=== PATIENT | female | born 1950 | race Caucasian/White ===

== ENCOUNTER 2019-12-22 09:06 | Inpatient (IN) | payer MEDICARE, SELFPAY ==
[2019-12-22] VITALS (24 sets, daily range): BP systolic 97–154; BP diastolic 51–86; PULSE 54–97; RESP 18–33; TEMP 32.9–35.1; O2SAT 90–100
--- NOTE | ~2019-12-22 | XR_ITS ---
XR chest 1V portable DATE: 12/25/2019 06:11 INDICATION: Pneumonia, pulmonary edema TECHNIQUE: Portable AP chest on 01/04/2020 at 0500 hours COMPARISON: 01/03/2020 portable AP chest at 0511 hours FINDINGS: Right internal jugular central venous catheter tip overlies the upper right atrium. ET tube tip is 3.9 cm above rolly, in satisfactory position. NG tube is present in the stomach. Normal heart size. Aortic calcification. There is pulmonary vascular congestion, mild prominence of the minor fissure, consistent with mild co ngestive changes. There are bilateral lower lung infiltrates and/or atelectasis, greater on the left. Diffuse osteopenia. IMPRESSION: Mild congestive changes, bilateral lower lung infiltrate and/atelectasis, left greater th e right, new since 01/03/2020 Reviewed, dictated and finalized at location A. IMPRESSION: Mild congestive changes, bilateral lower lung infiltrate and/atelec tasis, left greater the right, new since 01/03/2020
--- NOTE | ~2019-12-22 | US_ITS ---
US right upper quadrant INDICATION: Elevated liver function tests. PROCEDURE: Realtime right upper abdominal ultrasound. COMPARISON: No prior studies for comparison. FINDINGS: The pancreas is normal without focal mass or pancreatic ductal dilation. Liver echotexture is increased, consistent with fatty infiltration. There is normal directional flow in the portal ve in. The gallbladder is normal without stones, gallbladder wall thickening or pericholecystic fluid. Comm on bile duct measures 4 mm. No sonographic Welsh's sign. IMPRESSION: 1: Fatty infiltration of the liver. Reviewed, dictated and finalized at location A.
--- NOTE | ~2019-12-22 | CT_ITS ---
EXAMINATION: CT brain wo con DATE: 12/22/2019 10:38 INDICATION: Cardiac arrest. Patient unresponsive. TECHNIQUE: Computed tomography (CT) of the head was performed without intravenous contrast. The dose- length product was 605.33 mGy-cm. The mA was adjusted according to patient size. Iterative reconstruc tion technique was employed. COMPARISON: None FINDINGS: Mild atrophy. There are scattered moderate periventricular and subcortical white matter tammy nges, most likely related to small vessel ischemic disease (microangiopathy). No acute intracranial h emorrhage, infarction, mass or mass effect. There are chronic bilateral lacunar infarctions. There is a chronic left occipital lobe infarction. There is intracranial atherosclerosis. There is mild mucos al thickening of the maxillary, ethmoid and sphenoid sinuses. IMPRESSION: 1. No acute intracranial abnormality. 2: Chronic bilateral lacunar and left occipital lobe infarctions. 3: Chronic age-related findings. 4: Mild sinus disease. Reviewed, dictated and finalized at location A.
--- NOTE | ~2019-12-22 | CT_ITS ---
EXAMINATION: CT brain wo con EXAM DATE: 12/25/2019 15:19 INDICATION: Respiratory failure. Cardiac arrest. Anoxic brain injury. TECHNIQUE: Spiral CT of the head was performed without contrast. Axial, coronal and sagittal images were reviewed. The dose-length product (DLP) for this examination was 605.33 mGy-cm. The exposure w as tailored according to patient size, and iterative reconstruction (ASIR) was used as additional dos e reduction technique. Comparison is made to prior examination from 12/22/2019. FINDINGS: Interval development of large peripheral wedge-shaped infarction in the left frontotemporop arietal lobes, left MCA distribution with gyral swelling, effacement of sulci in this infarcted regio n, acute to subacute infarction given the amount of edema. The left uncus protrudes slightly more inf erior than the contralateral side, small amount of left uncal herniation. The lateral ventricles appe ar symmetrical, and there is no subfalcine herniation (no midline shift). There is no hemorrhagic con version. No brain mass identified or obstructive hydrocephalus. No extra-axial collections. There are punctate bilateral old basal ganglia lacunar infarctions. There is mild to moderate microangiopathy and cereb ral atrophy. IMPRESSION: Infarction involving large portion of the left MCA, probably about 3 days old given the a mount of cytotoxic edema within this, causing sulcal effacement, small amount of uncal herniation, bu t no midline shift, and the lateral ventricles appear symmetric. No hemorrhagic conversion. Reviewed, dictated and finalized at location A. IMPRESSION: Infarction involving large portion of the left MCA, probably about 3 days old given the amount of cytotoxic edema within this, causing sulcal effa cement, small amount of uncal herniation, but no midline shift, and the lateral ventricles appear symmetric. No hemorrhagic conversion.
--- NOTE | ~2019-12-22 | XR_ITS ---
XR chest 1V portable DATE: 12/26/2019 06:19 INDICATION: Pneumonia, pulmonary edema TECHNIQUE: Portable AP chest on 12/26/2019 at 0548 hours COMPARISON: 01/04/2020 portable AP chest at 0500 hours FINDINGS: ET tube in satisfactory position 4.3 cm above rolly. NG tube is in satisfactory position w ithin the stomach. Right internal jugular central venous catheter tip overlies the right superior cav oatrial junction area. Heart size appears within normal limits. There are bilateral lower lung zone infiltrates and/atelecta sis, left greater than right. Mild left pleural effusion. There is mild pulmonary vascular congestion and redistribution. Aortic calcification. Diffuse osteopenia. IMPRESSION: Congestive changes Bilateral lower lung infiltrate and/atelectasis; the infiltrate and/or atelectasis in the right lower lung zone is increased since 12/25/2019 Reviewed, dictated and finalized at location A. IMPRESSION: Congestive changes Bilateral lower lung infiltrate and/atelectasis; the infiltrate and/or atelecta sis in the right lower lung zone is increased since 12/25/2019
--- NOTE | ~2019-12-22 | XR_ITS ---
XR abdomen NG/feed tube insert INDICATION: Evaluate NG tube position. TECHNIQUE: Limited KUB perform for evaluating NG tube . COMPARISON: No prior studies for comparison. FINDINGS: NG tube tip has been advanced into the stomach. Visualized bowel gas pattern is unremarkab le. IMPRESSION: 1: NG tube tip in the stomach. Reviewed, dictated and finalized at location A.
--- NOTE | ~2019-12-22 | CT_ITS ---
EXAMINATION: CTA chest PE protocol DATE: 12/22/2019 10:43 INDICATION: Cardiac arrest TECHNIQUE: Computed tomography (CT) pulmonary angiogram of the chest was performed with 100 mL Omnipa que-350 intravenous contrast. Additional 3D reconstructions utilizing coronal maximum intensity proje ction (MIP) were performed. Automated exposure control and iterative reconstruction technique were em ployed. The dose-length product was 537.50 mGy-cm. COMPARISON: None FINDINGS: Excellent contrast opacification of the pulmonary arteries. There is mild streak artifact from dense contrast in the superior vena cava and right atrium. Mild scattered respiratory motion artifact which does not significantly limit evaluation. No pulmonary embolism. Small posteriorly layering bilateral pleural effusions. There is consolidation without significant associated volume loss in the dependen t aspect of the abdominal aorta bilateral upper and lower lobes and to a lesser degree the lingula an d right middle lobes. Slightly more anteriorly there are patchy centrilobular groundglass opacities. There are some peripheral smooth septal line thickening at the lung bases and apices. No pneumothorax . Mild cardiomegaly. Atherosclerotic coronary artery calcifications. No pericardial effusion. Thoraci c aorta is normal in caliber with no dissection. No pathologically enlarged thoracic lymphadenopathy. Endotracheal tube tip 3.0 cm above the rolly. Nasogastric tube extends into the stomach. Diffuse h epatic steatosis. Moderate thoracic spondylosis. IMPRESSION: 1. Extensive dependent predominant lung disease given appearance and pattern would favor severe pulmo nary edema over pneumonia. 2. Small bilateral pleural effusions. 3. Cardiomegaly. 4. Diffuse hepatic steatosis. Reviewed, dictated and finalized at location A. IMPRESSION: 1. Extensive dependent predominant lung disease given appearance and pattern wo uld favor severe pulmonary edema over pneumonia. 2. Small bilateral pleural effusions. 3. Cardiomegaly. 4. Diffuse hepatic steatosis.
--- NOTE | ~2019-12-22 | XR_ITS ---
EXAMINATION: XR chest 1V portable DATE: 12/27/2019 05:48 INDICATION: Pneumonia. Pulmonary edema. TECHNIQUE: A single frontal view of the chest was obtained. COMPARISON: Chest single view 12/26/2019, chest CT 12/22/2019 FINDINGS: The lung volumes are small. There is a small left pleural effusion. There are airspace opac ities in the perihilar regions and at left lung base. No pneumothorax. The heart size is normal. The endotracheal tube tip is 3.7 cm above the rolly. The nasogastric tube tip is in the stomach. A right internal jugular central venous catheter is seen with tip at the superior cavoatrial junction. IMPRESSION: 1. Stable airspace opacities in the perihilar regions and at left lung base, consistent with pulmonar y edema versus pneumonia. 2. Stable small left pleural effusion. Reviewed, dictated and finalized at location A. IMPRESSION: 1. Stable airspace opacities in the perihilar regions and at left lung base, co nsistent with pulmonary edema versus pneumonia. 2. Stable small left pleural effusion.
--- NOTE | ~2019-12-22 | XR_ITS ---
EXAMINATION: XR chest port-a-cath/central DATE: 12/22/2019 13:34 INDICATION: Central line placement TECHNIQUE: frontal view of the chest was obtained. COMPARISON: Chest radiograph dated 12/22/2019 at 9:19 AM FINDINGS: Right internal jugular central venous catheter with distal tip appearing to call back upon itself in the region of the high right atrium/superior cavoatrial junction, possibly within the atrial appendag e. Endotracheal tube tip 3.5 cm above the rolly. Nasogastric tube extends below the left hemidiaphr agm with distal tip collimated off the study. Significant improvement in the prior extensive airspace disease throughout the left lung with now mor e symmetric appearance of bilateral perihilar and lower lung predominant opacities. No pneumothorax o r definitive pleural effusion. The cardiomediastinal silhouette is appears within normal limits accou nting for AP technique and slight leftward rotation of the patient. IMPRESSION: 1. Right internal jugular central venous catheter with tip coiled in the region of the superior cavoa trial junction, possibly within the right atrial appendage. Would consider withdrawal by 3 cm and kannan maging. A lateral view if possible would also be helpful. 2. Improving bilateral airspace disease which given appearance on prior CT and the relatively rapid i mprovement on the left would favor pulmonary edema over pneumonia. Reviewed, dictated and finalized at location A. IMPRESSION: 1. Right internal jugular central venous catheter with tip coiled in the region of the superior cavoatrial junction, possibly within the right atrial appendag e. Would consider withdrawal by 3 cm and reimaging. A lateral view if possible would also be helpful. 2. Improving bilateral airspace disease which given appearance on prior CT and the relatively rapid improvement on the left would favor pulmonary edema over p neumonia.
--- NOTE | ~2019-12-22 | XR_ITS ---
EXAMINATION: XR chest 1V portable DATE: 12/23/2019 05:40 INDICATION: Pulmonary edema and pneumonia TECHNIQUE: frontal view of the chest was obtained. COMPARISON: Chest radiograph dated 12/22/2019 FINDINGS: Endotracheal tube tip 3.3 cm above the rolly. Right internal jugular central venous catheter with di stal tip at the caudal superior vena cava. Nasogastric tube extends below the left hemidiaphragm wit h distal tip collimated off the study. Decrease in the previously seen pulmonary vascular congestion and mild bilateral airspace opacities l ikely resolving pulmonary edema. No pleural effusion or pneumothorax. The cardiomediastinal silhouett e is normal. IMPRESSION: 1. Near complete resolution of prior pulmonary edema. Reviewed, dictated and finalized at location A.
--- NOTE | ~2019-12-22 | XR_ITS ---
EXAMINATION: XR chest 1V portable DATE: 12/28/2019 05:53 INDICATION: Respiratory failure. TECHNIQUE: A single frontal view of the chest was obtained. COMPARISON: Chest single view 12/27/2019 FINDINGS: There are airspace opacities in the perihilar regions and lower lung zones. There is a smal l left pleural effusion. No pneumothorax. The heart size is normal. The endotracheal tube tip is 3.2 cm above the rolly. A right internal jugular central venous catheter is seen with tip at the superio r cavoatrial junction. The nasogastric tube tip is in the stomach. IMPRESSION: 1. Stable airspace opacities in the perihilar regions and lower lung zones, consistent with pulmonary edema versus pneumonia. 2. Stable small left pleural effusion. Reviewed, dictated and finalized at location A. IMPRESSION: 1. Stable airspace opacities in the perihilar regions and lower lung zones, con sistent with pulmonary edema versus pneumonia. 2. Stable small left pleural effusion.
--- NOTE | ~2019-12-22 | XR_ITS ---
XR chest ET placement 12/22/2019 09:34 Indication: Respiratory arrest. Endotracheal tube placement. Procedure: AP portable chest. 3 chest images. Comparison: No prior studies for comparison. Findings: Initial image demonstrates endotracheal tube in the right mainstem bronchus. Subsequent rola ges demonstrate retraction of the endotracheal tube, 2.5 cm above the rolly. Heart size normal. Ther e is diffuse bilateral airspace disease which most likely represents edema. Pneumonia less favored. N G tube in the distal aspect of the esophagus. Recommend advancement. No pleural effusion or pneumotho rax. Impression: 1: Diffuse bilateral airspace disease, most likely edema. Pneumonia less favored. Reviewed, dictated and finalized at location A. Impression: 1: Diffuse bilateral airspace disease, most likely edema. Pneumonia less favore dRalph
--- NOTE | ~2019-12-22 | XR_ITS ---
XR chest port-a-cath/central 12/22/2019 15:51 Indication: Central line placement. Cardiac arrest. Procedure: AP portable chest Comparison: Comparison to multiple prior studies sequentially, with oldest reviewed study dated 01/2020. Findings: Endotracheal tube 4.5 cm above the rolly. Right IJ central line tip in the CC. NG tube in the stomach. Heart size normal. Diffuse bilateral airspace disease. No pneumothorax. Impression: 1: Diffuse bilateral airspace disease may represent edema or less likely pneumonia. Reviewed, dictated and finalized at location A. Impression: 1: Diffuse bilateral airspace disease may represent edema or less likely pneumo lauren.
--- NOTE | ~2019-12-22 | XR_ITS ---
EXAMINATION: XR chest 1V portable DATE: 12/24/2019 05:32 INDICATION: Pneumonia. Pulmonary edema. TECHNIQUE: frontal view of the chest was obtained. COMPARISON: Chest radiograph dated 12/23/2019 FINDINGS: Endotracheal tube tip 4.8 cm above the rolly. Right internal jugular central venous catheter with di stal tip at the caudal superior vena cava. Nasogastric tube extends below the left hemidiaphragm wit h distal tip collimated off the study. No focal airspace opacities, pulmonary edema, pleural effusion or pneumothorax. The cardiomediastinal silhouette is normal. IMPRESSION: 1. No evident cardiopulmonary disease. Reviewed, dictated and finalized at location A.
--- NOTE | 2019-12-22 09:07 | ECG_ITS ---
Measurements Intervals [place] Rate: 59 P: 73 KS: 152 QRS: -30 QRSD: 174 T: 158 QT: 493 QTc: 490 Interpretive Statements SINUS BRADYCARDIA LEFT BUNDLE BRANCH BLOCK BASELINE WANDER- I, II, III, AVR, AVL, AVF, V6 ABNORMAL ECG Electronically Signed On 12-22-2019 9:15:49 CDT by Carlos Rodarte D.O.
--- NOTE | 2019-12-22 09:09 | ED.CPR ---
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 Patient lives at home with her daughter, daughter was at work when she received a phone call asking her to come home because something was not right. When daughter arrived at the house mom was laying on her bed and still moving but not acting herself. EMS was called. Upon EMS arrival patient was in asystole and CPR was initiated. She received epinephrine IV x2. She was intubated in the field. They did obtain return of spontaneous circulation. A left tibial intraosseous line was placed in the field. Blood sugar was 68. Patient does not go to the doctor and has no known medical history. She does not take any medications. Upon arrival patient does have intact pulses, she is clamped down peripherally with mottling centrally. Related Data Allergies Allergy/AdvReac Type Severity Reaction Status Date / Time No Known Allergies Allergy Verified 12/22/19 10:05 Review of Systems Review of Systems: ROS unobtainable: Yes unobtainable due to endotracheal tube and unobtainable due to medical condition [facility] Past Medical History Medical History (Updated 12/22/19 @ 11:38 by Mani Rudd MD) No significant past medical history Surgical History Surgical History (Updated 12/22/19 @ 09:26 by Mani Rudd MD) No significant past surgical history Social History Social History (Updated 12/22/19 @ 09:26 by Mani Rudd MD) Smoking status: Never smoker Substance use: never Gender identity (if verbalized by the patient): Female Exam Narrative: Exam Narrative: GENERAL: Unresponsive, obese.. HEAD: Normocephalic, atraumatic. EYES: Pupils fixed and dilated. Extraocular movements.. ENT: Mucous membranes moist. ET tube present with white frothy secretions NECK: Supple. CHEST: No spontaneous respiratory effort and patient being bagged. Decreased lung sounds on the right compared to left, suspect right mainstem intubation. HEART: Regular rate and rhythm. Strong central pulses with diminished peripheral pulses.. ABDOMEN: Soft, nondistended, normal active bowel sounds. EXTREMITIES: Left tibial IO. The skin of the fingers and left kinsey are very white due to clamp down peripheral blood vessels. SKIN: Cool and dry, central skin mottling as well as mottling to the proximal extremities. NEURO: GCS 3. Course Reevaluation(s) Reevaluation #1: Patient skin color is improved significantly. She is starting to gag on the ET tube and pupils are now 3 mill meters and sluggish. She responds to touching her face. Blood pressure 106/49 with heart rate 96 bpm. Patient is on the ventilator. I spoke with patient's daughter Aziza and updated her on patient's condition. Patient is full code they want all interventions at this time. Daughter reports there is been no change in patient's physical ability recently. She typically stays at home. She left the house 1 time last week but did not like breathing through the mask that she was wearing so she is opted not to leave again. Otherwise she has no exertional dyspnea or fatigue. She is without any infectious symptoms. Date: 12/22/19 Time: 09:32 Reevaluation #2: Patient's daughter is been in the room with her. Informed of results. Admit to hospitalist service and ICU consulting. Patient persistently hypothermic down here. No recommendation warm at this time, will likely start therapeutic hypothermia upstairs. Lasix 80 mg ordered for diuresis. Date: 12/22/19 Time: 11:36 Vital Signs Vital signs: Vital Signs Temperature 95.2 F L 12/22/19 08:59 Pulse Rate 54 L 12/22/19 08:59 Respiratory Rate 18 12/22/19 08:59 Blood Pressure 97/51 L 12/22/19 08:59 Pulse Oximetry 99 12/22/19 08:59 Temperature 95.2 F L 12/22/19 08:59 Pulse Rate 95 12/22/19 10:55 Respiratory Rate 1
[2019-12-22] MEDS: MIDAZOLAM HCL 2 MG/2 ML VIAL (09:37)
--- NOTE | 2019-12-22 09:37 | ECG_ITS ---
Measurements Intervals [place] Rate: 103 P: 49 [place]: 171 QRS: -24 QRSD: 147 T: 134 QT: 390 QTc: 513 Interpretive Statements SINUS TACHYCARDIA LEFT BUNDLE BRANCH BLOCK BASELINE ARTIFACT- II ABNORMAL ECG Electronically Signed On 12-22-2019 12:59:38 CDT by Carlos Rodarte D.O.
[2019-12-22 09:40] LABS: Basophils Absolute Auto 0.1 K/mm3 (0.0-0.1); Basophils Percent Auto 0.8 % (0.2-1.2); Eosinophils Absolute Auto 0.2 K/mm3 (0-0.3); Eosinophils Percent Auto 2.2 % (0-4.4); Hematocrit 53.7 % (37.0-47.0); Immature Granulocyte Absolute 0.34 K/mm3 (0.00-0.031); Immature Granulocyte Percent A 4.7 % (0-0.5); Lymphocytes Absolute Auto 3.34 K/mm3 (0.9-3.2); Lymphocytes Percent Auto 45.9 % (18.3-44.2); Mean Corpuscular HGB Conc 29.8 g/dl (32-36); Mean Corpuscular Hemoglobin 30.7 pg (26-34); Mean Corpuscular Volume 103.1 fl (80-100); Mean Platelet Volume 9.8 fl (7.4-10.4); Monocytes Absolute Auto 0.5 K/mm3 (0.1-0.6); Monocytes Percent Auto 6.7 % (2.6-8.5); Neutrophils Absolute Auto 2.9 K/mm3 (1.3-6.7); Neutrophils Percent Auto 39.7 % (45.5-73.1); Nucleated Red Blood Cells Absolute Auto 0.1 K/mm3 (0.0-0.012); Nucleated Red Blood Cells Perc 0.7 % (0.0-0.2); Platelet Count Result 286 k/mm3 (150-375); Red Blood Count 5.21 M/mm3 (4.2-5.4); Red Cell Distribution Width 12.8 % (11.5-14.5); White Blood Count 7.3 K/mm3 (4.5-10.0)
[2019-12-22 09:50] LABS: INR 1.3
[2019-12-22 09:51] LABS: Partial Thromboplastin Time 51.1 SECONDS (22.3-36.8)
[2019-12-22 09:59] LABS: Albumin Level 3.8 g/dL (3.5-5.1); Alkaline Phosphatase 95 U/L (38-126); Aspartate Amino Transferase 94 U/L (14-36); Bilirubin,Total 0.4 mg/dL (0.2-1.3); Blood Urea Nitrogen 10 mg/dL (7-17); Carbon Dioxide 12 mmol/L (22-30); Chloride 104 mmol/L (98-107); Cholesterol 233 mg/dL (0-200); Estimated Glomerular Filt Rate 49; Glucose 305 mg/dL (65-105); HDL Direct 49 mg/dL; Potassium 3.6 mmol/L (3.4-5.0); Sodium 140 mmol/L (137-145); Triglycerides 207 mg/dL (<150)
[2019-12-22 10:00] LABS: NT Pro B Type Natriuretic Pept 1160 PG/ML (5-100)
[2019-12-22 10:04] LABS: LDL Cholesterol Direct 151 mg/dL
[2019-12-22 10:05] LABS: Alanine Aminotransferase 48 U/L (4-35)
[2019-12-22 10:13] LABS: Lactic Acid Reflex 18.5 mmol/L (0.7-2.1); Troponin I 0.102 ng/mL (0.000-0.034)
[2019-12-22] MEDS: SODIUM CHLORIDE 0.9% IV 1,000 ML 999 ML IV CONT (10:30)
--- NOTE | 2019-12-22 11:20 | PC.NURSE ---
Addendum entered by Clinton Sibley RN 12/22/19 12:25: While Pt. is CT, Pt. being mechanically ventilated via BVM on high flow O2 from respiratory therapist. Original Note: ACLS and CPR performed out in the field. 2 doses of epi given by EMS at 843 and 849. Pt. got a pulse back at 849. Pt. was asystole prior to medication administration. 900 EMS arrived. Pt. currently has a pulse in ROSC. 915 per EMS Pt. BG was 68, Per EDP via verbal order readback give 1/2 amp of D50 due to BG. 920 EMS had a 7 ET inserted 27cm at the lip. Per EDP pulled ET tube back 3cm due to CXR showing tube not in proper placement 922 Per EDP via verbal order readback pull ET back 2cm. Pt. ET tube now 22 at the lip. CXR shows proper placement, NG tube placed at 60cm in the left nares. Placement confirmed by KUB XR. 931 Pt. becoming more arousing, gagging on ET Tube, Per EDP give 2mg versed via verbal order readback IVP 938 Pt. still gagging on ET tube per EDP via verbal order give 50mcg of fentanyl via IVP. WAiting for sedation drips 1020 Pt. more arousable, Per EDP via verbal order readback titrate versed drip up to 3mg/hr and fentanyl drip down to 25mcg/hr. [address] with RN and RT. 1045 Pt. back to room with RN and RT. Placed back on monitor and ventilator.
[2019-12-22] MEDS: FUROSEMIDE INJ 100 MG/10 ML VIAL 80 MG IV PUSH (11:22)
--- NOTE | 2019-12-22 11:36 | PC.NURSE ---
EDP notified that Pt. core temperature decreased from 95.6 F to 93.2 F. Per EDP via verbal order readback do not warm Pt. due to therapeutic hypothermia.
--- NOTE | 2019-12-22 12:04 | WPDCNINT ---
Assessment and Plan Assessment and plan (1) Cardiac arrest: Code(s): I46.9 - Cardiac arrest, cause unspecified Status: Acute Assessment and Plan: cardiac arrest, unknown etiology could be related to cardiac arrhythmia, respiratory event, coronary artery disease, patient has not seen a doctor in a long time and does not have any known medical history - myoclonic jerks observed - poor prognostic sign post cardiac arrest, started on Keppra - will place patient on hypothermia protocol right IJ central line placed. - Cardiology has been consulted for left bundle branch block seen on EKG - troponin 0.102 x 1, 2nd set pending (2) Acute respiratory failure: Code(s): J96.00 - Acute respiratory failure, unspecified whether with hypoxia or hypercapnia Status: Acute Assessment and Plan: acute respiratory failure likely related to cardiac arrest, pulmonary edema, pneumonia, CHF - patient intubated on 12/22/2019 - on CMV mode of ventilation, peep of 8, 100% FiO2 for now - chest CT and chest x-ray reviewed, no PE - ABGs pending - patient started on ceftriaxone and azithromycin, (3) Suspected COVID-19 virus infection: Code(s): R68.89 - Other general symptoms and signs Status: Acute Assessment and Plan: SARS-CoV-2 PCR Has been obtained and pending results. - Will place patient on Airborne, droplet and contact precautions. (4) Bilateral pulmonary infiltrates on chest x-ray: Code(s): R91.8 - Other nonspecific abnormal finding of lung field Status: Acute Assessment and Plan: bilateral pulmonary infiltrates, possible pneumonia, suspected COVID-19 pneumonia - antibiotics as above (5) Pulmonary edema: Code(s): J81.1 - Chronic pulmonary edema Status: Acute Assessment and Plan: pulmonary edema noted on the chest x-ray and CT scan - unknown history of congestive heart failure, - BNP 1160 - continue to diurese (6) Myoclonic jerking: Code(s): G25.3 - Myoclonus Status: Acute Assessment and Plan: patient started on Keppra, - will add Ativan p.r.n. - neurology has been consulted (7) Dietary counseling and surveillance: Code(s): Z71.3 - Dietary counseling and surveillance Status: Acute Assessment and Plan: NPO for now (8) DVT prophylaxis: Code(s): Z29.9 - Encounter for prophylactic measures, unspecified Status: Acute Assessment and Plan: DVT prophylaxis: Lovenox stress ulcer prophylaxis: Protonix Additional Plan discussed with son Speedy Berger and updated him with patient's condition, plan of care. I discussed with him in details regarding hypothermia protocol post cardiac arrest, updated him that I placed a central line, he is aware that patient will be cold for 24 hours and did removed. I also discussed with him the myoclonic jerks/seizures. He is aware that cardiology and Neurology will be following the patient along with me. Code status: Full code Critical care time spent: 54 minutes Due to a high probability of clinically significant, life threatening deterioration, the patient required my highest level of preparedness to intervene emergently and I personally spent this critical care time directly and personally managing the patient. This critical care time included obtaining a history; examining the patient; pulse oximetry; ordering and review of studies; arranging urgent treatment with development of a management plan; evaluation of patient's response to treatment; frequent reassessment; and discussions with other providers. It was exclusive of separately billable procedures and treating other patients and teaching time. Please see Assessment and Plan section and the rest of the note for further information on patient assessment and treatment Patient Ombudsperson Consult Note Consult date: 12/22/19 Time Seen: 12:11 Reason for consult: Cardiac arrest, acute respirato
[2019-12-22 12:38] LABS: Reflex Lactic Acid Yes or No Add Lactic
[2019-12-22] MEDS: levETIRAcetam 1000MG/NACL100ML 1,000 MG/100 ML BAG 400 MG IVPB (13:33)
[2019-12-22] MEDS: ENOXAPARIN 40 MG/0.4 ML SYRINGE SUB-Q (13:33)
[2019-12-22] MEDS: PANTOPRAZOLE SODIUM IV 40 MG VIAL IV PUSH (13:33)
[2019-12-22 14:23] LABS: Basophils Absolute Auto 0.1 K/mm3 (0.0-0.1); Basophils Percent Auto 0.4 % (0.2-1.2); Eosinophils Percent Auto 0.1 % (0-4.4); Hematocrit 54.1 % (37.0-47.0); Hemoglobin 17.6 g/dL (12.0-15.0); Immature Granulocyte Absolute 0.14 K/mm3 (0.00-0.031); Immature Granulocyte Percent A 0.6 % (0-0.5); Lymphocytes Absolute Auto 0.98 K/mm3 (0.9-3.2); Lymphocytes Percent Auto 4.5 % (18.3-44.2); Mean Corpuscular HGB Conc 32.5 g/dl (32-36); Mean Corpuscular Hemoglobin 30.7 pg (26-34); Mean Corpuscular Volume 94.4 fl (80-100); Mean Platelet Volume 9.4 fl (7.4-10.4); Monocytes Absolute Auto 1.1 K/mm3 (0.1-0.6); Monocytes Percent Auto 4.8 % (2.6-8.5); Neutrophils Absolute Auto 19.6 K/mm3 (1.3-6.7); Neutrophils Percent Auto 89.6 % (45.5-73.1); Platelet Count Result 282 k/mm3 (150-375); Red Blood Count 5.73 M/mm3 (4.2-5.4); Red Cell Distribution Width 12.9 % (11.5-14.5); White Blood Count 21.9 K/mm3 (4.5-10.0)
--- NOTE | 2019-12-22 14:30 | ADMGEN ---
This patient, Cris Phan, was admitted to Intensive Care Unit-6. Patient arrived via stretcher from ED, intubated and sedated on Versed and Fentanyl gtt. Peripheral IV x2 and Intraosseous IV x 1. NG to right nare noted
[2019-12-22 14:31] LABS: HCO3 ABG 15.7 mEq/l (22.0-26.0); PO2 ABG 96.3 mmHg (80.0-100.0); pH ABG 7.213 (7.350-7.450)
--- NOTE | 2019-12-22 14:31 | WPDPROCEDUR ---
Procedures Central Line Placement Right IJ: Central Line Date: 12/22/19 Central Line Time: 12:41 Discussed w/ the patient/family/POA,the placement of a central venous catheter, including its clinical necessity/indication & associated potential risks, benifits and alternatives.: Yes The patient/family/POA understand(s) and acknowledge(s) the need to proceed with central venous catheter insertion as an important element of the patient's clinical management.: Yes Time Out Performed: Yes Patient Position: trendelenburg Patient placed on monitor/pulse ox: Yes Provider Prep: mask, sterile gown, sterile gloves, Max. sterile barrier precautions and hand hygiene Central line prep: Chlorhexidine scrub and sterile full body sheet applied Local anesthesia used: lidocaine 1% Amount of anesthesia used (ml): 3 Ultrasound used for placement: Yes Central line lumen inserted: triple [place]: 16 Length (cm): 16 Depth of Insertion (cm): 16 Post procedure: sutured in place, good blood return, all ports aspirated, flushed, capped, tegaderm, hemostatic disc, antimicrobial disc and aseptic technique maintained throughout procedure Post procedure x-ray: tip of catheter in good position and other Patient tolerated procedure: well Complications: none
[2019-12-22 14:32] LABS: Base Excess ABG 11.4 mEq/l (+/-2.0); Total Hemoglobin 18.3 g/dL (12.0-18.0)
[2019-12-22 14:33] LABS: Alveolar/Arterial O2 Gradient 576.7 mmHg; Carboxyhemoglobin 0.3 % THb (0-2.0); Methemoglobin ABG 0.4 %THb (0-1.5); Oxygen Content ABG 24.6 %vol (16.0-22.0); Oxyhemoglobin 95.6 % THb (90.0-100.0)
[2019-12-22 14:34] LABS: Lactate Dehydrogenase 1806 U/L (313-618); Lactic Acid Reflex 3.5 mmol/L (0.7-2.1)
[2019-12-22 14:34] LABS: Device VENTILATOR; Fractional Inspired Oxygen 100 %; Modified Allen's Test Pass; PO2 FiO2 Ratio Arterial Blood 0.96 %; Reduced Hemoglobin 3.7 %THb (0-5.0); Site Drawn RIGHT RADIAL
[2019-12-22 14:37] LABS: Arterial Blood Gas Ventilator rate 20 /MIN
[2019-12-22 14:38] LABS: Arterial Blood Gas PEEP 8 cmH2O; Arterial Blood Gas Tidal Volume 350 ml; Arterial Blood Gas Vent Mode CMV
[2019-12-22 14:38] LABS: Alanine Aminotransferase 84 U/L (4-35); Albumin Level 3.9 g/dL (3.5-5.1); Alkaline Phosphatase 117 U/L (38-126); Aspartate Amino Transferase 228 U/L (14-36); Bilirubin,Total 0.4 mg/dL (0.2-1.3); Blood Urea Nitrogen 15 mg/dL (7-17); CRP 0.6 mg/dL (<1.0); Calcium 7.5 mg/dL (8.4-10.2); Carbon Dioxide 21 mmol/L (22-30); Chloride 107 mmol/L (98-107); Estimated CRCL calculation 51 ml/min; Estimated Glomerular Filt Rate > 60; Glucose 285 mg/dL (65-105); Hemoglobin A1C 5.3 % (<5.7); Potassium 3.4 mmol/L (3.4-5.0); Sodium 138 mmol/L (137-145)
[2019-12-22 14:48] LABS: Troponin I 0.627 ng/mL (0.000-0.034)
[2019-12-22 15:02] LABS: D Dimer > 20.00 ug/mL (<0.48)
[2019-12-22 15:34] LABS: Hepatitis B Surface Antigen Negative (Negative)
[2019-12-22 15:40] LABS: HAV RESULT Negative (Negative); Hepatitis B Core IgM Result Negative (Negative)
[2019-12-22 15:51] LABS: Hepatitis C Virus Antibody Negative (Negative)
[2019-12-22] MEDS: SODIUM BICARBONATE 8.4% 50 MEQ/50 ML VIAL IV PUSH (16:13)
[2019-12-22] MEDS: LACTATED RINGERS 1,000 ML 75 ML IV CONT (16:44)
[2019-12-22] MEDS: LORAZEPAM INJ 2 MG/ML VIAL IV PUSH ×2 (16:44→23:41)
[2019-12-22] MEDS: INSULIN ASPART (*BKC) 100 UNITS/ML SUB-Q (17:31)
[2019-12-22 17:38] LABS: Glucose Point of Care 226 (65-105)
[2019-12-22 18:02] LABS: Troponin I 0.856 ng/mL (0.000-0.034)
--- NOTE | 2019-12-22 18:30 | PM.IMHP ---
H&P: HPI History of Present Illness Chief complaint: Post cardiac arrest. Narrative: Cris Phan is a 69-year-old female with no known medical history (the patient has not seen a physician for many years) who presented to the emergency department earlier today via EMS from home post cardiac arrest. The patient shares a home with her daughter, who mentions that the patient really has not left the house since October due to sheltering in place. The patient seems to have been in her usual state of health, however early this morning she phoned her daughter and asked her to come home because she was just not feeling right. When the daughter arrived at the home, the patient was alert and lying in bed, however she was ?not acting right.? Daughter then called 911, and on EMS arrival the patient was in asystole. CPR was initiated, she was intubated, IO was placed, and she received epinephrine x2 with return of spontaneous circulation. Hypothermia protocol has been initiated and she is currently sedated and intubated in the ICU. Total down time was reportedly approximately 15 minutes time. Patient's daughter does work outside of the home, but she denies exposure to those positive for COVID-19 and she has not had sick contacts. The patient has not complained of feeling poorly recently. Review of Systems Review of Systems: Narrative: Unobtainable to obtain as the patient is sedated and intubated. 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 Surgical History Surgical History (Updated 12/22/19 @ 09:26 by Mani Rudd MD) No significant past surgical history Family History Family History (Updated 12/22/19 @ 18:53 by Jama Yeager RN) Other Unknown family medical history Social History Social History (Updated 12/22/19 @ 19:53 by Deanna Germain PA-C) Smoking status: Never smoker Alcohol intake: current Drinks per week: 12 Substance use: never Substance use type: does not use Living arrangements: with family Additional living arrangements comments: Patient lives in [place] with her daughter. Occupation/Education: retired Spiritual care concerns: No Agree to blood products: Yes Meds Home Medications and Allergies Allergies Allergy/AdvReac Type Severity Reaction Status Date / Time No Known Allergies Allergy Verified 12/22/19 10:05 Vital Signs Vital Signs - 24 hr 12/22/19 08:59 12/22/19 09:01 12/22/19 09:21 Temperature 95.2 F L Pulse Rate 54 L 86 Respiratory Rate 18 Blood Pressure 97/51 L Pulse Oximetry 99 99 12/22/19 09:37 12/22/19 10:00 12/22/19 10:16 Temperature 95.2 F L Pulse Rate 97 96 Respiratory Rate 19 Blood Pressure 113/69 Pulse Oximetry 100 100 99 12/22/19 10:55 12/22/19 11:00 12/22/19 11:15 Temperature 93.2 F L Pulse Rate 95 97 Respiratory Rate 18 Blood Pressure 132/66 Pulse Oximetry 98 95 95 12/22/19 11:55 12/22/19 12:05 12/22/19 12:18 Temperature 93.6 F L 94.6 F L Pulse Rate 85 82 93 Respiratory Rate 18 21 H Blood Pressure 117/76 147/83 H Pulse Oximetry 96 91 90 12/22/19 14:00 12/22/19 14:43 12/22/19 15:31 Temperature 93.5 F L Pulse Rate 73 74 75 Respiratory Rate 20 Blood Pressure 136/75 Pulse Oximetry 99 98 96 12/22/19 16:00 12/22/19 17:17 12/22/19 18:00 Temperature 91.4 F L 91.2 F L Pulse Rate 78 87 72 Respiratory Rate 33 H 23 H Blood Pressure 128/86 121/67 Pulse Oximetry 98 97 98 Exam Narrative: Exam Narrative: General: Acutely ill-appearing female sedated and intubated. HEENT: Normocephalic, atraumatic. Pupils are approximately 2 millimeters and matter are not reactive. Conjunctiva mildly injected. ET tube in place. I was told she had a positive cough re
[2019-12-22] MEDS: ALBUTEROL SULFATE NEB 2.5 MG/0.5 ML INH 5 MG INHALATION (19:55)
[2019-12-22] MEDS: levETIRAcetam 500MG/NACL 100ML 500 MG/100 ML BAG 400 MG IVPB ×2 (20:06→22:18)
[2019-12-22 21:23] LABS: Salicylate < 1.0 mg/dL (2-20)
[2019-12-22 21:24] LABS: Acetaminophen < 10 ug/mL (10-30)
[2019-12-22] MEDS: PROPOFOL IV EMULSION 100 ML 5 MG IV CONT (21:42)
[2019-12-22 23:56] LABS: Glucose Point of Care 167 (65-105)
[2019-12-23] VITALS (27 sets, daily range): BP systolic 103–181; BP diastolic 56–92; PULSE 56–103; RESP 20–27; TEMP 33.3–37.3; O2SAT 97–100; BMI 71.4
[2019-12-23] MEDS: LORAZEPAM INJ 2 MG/ML VIAL IV PUSH ×5 (02:16→20:24)
[2019-12-23] MEDS: ALBUTEROL SULFATE NEB 2.5 MG/0.5 ML INH 5 MG INHALATION ×4 (02:27→21:23)
[2019-12-23 05:26] LABS: Alveolar/Arterial O2 Gradient 217.9 mmHg; Carboxyhemoglobin 0.1 % THb (0-2.0); Fractional Inspired Oxygen 50 %; HCO3 ABG 23.2 mEq/l (22.0-26.0); Methemoglobin ABG 0.2 %THb (0-1.5); Oxygen Saturation ABG 96.9 % (95.0-100.0); Oxyhemoglobin 96.6 % THb (90.0-100.0); PCO2 ABG 50.1 mmHg (35.0-45.0); PO2 ABG 100.7 mmHg (80.0-100.0); PO2 FiO2 Ratio Arterial Blood 2.01 %; Reduced Hemoglobin 3.1 %THb (0-5.0); Total Hemoglobin 16.9 g/dL (12.0-18.0)
[2019-12-23 05:27] LABS: Device VENTILATOR; Modified Allen's Test Pass; Site Drawn RIGHT RADIAL; pH ABG 7.284 (7.350-7.450)
[2019-12-23 05:28] LABS: Arterial Blood Gas PEEP 8 cmH2O; Arterial Blood Gas Tidal Volume 350 ml; Arterial Blood Gas Vent Mode CMV; Arterial Blood Gas Ventilator rate 22 /MIN
[2019-12-23 05:44] LABS: Hematocrit 48.8 % (37.0-47.0); Hemoglobin 16.3 g/dL (12.0-15.0); Mean Corpuscular HGB Conc 33.4 g/dl (32-36); Mean Corpuscular Hemoglobin 30.6 pg (26-34); Mean Corpuscular Volume 91.6 fl (80-100); Mean Platelet Volume 9.2 fl (7.4-10.4); Platelet Count Result 248 k/mm3 (150-375); Red Blood Count 5.33 M/mm3 (4.2-5.4); Red Cell Distribution Width 12.8 % (11.5-14.5); White Blood Count 15.9 K/mm3 (4.5-10.0)
[2019-12-23 06:00] LABS: Lactic Acid 2.4 mmol/L (0.7-2.1)
[2019-12-23 06:04] LABS: Alanine Aminotransferase 67 U/L (4-35); Albumin Level 3.5 g/dL (3.5-5.1); Alkaline Phosphatase 78 U/L (38-126); Aspartate Amino Transferase 112 U/L (14-36); Bilirubin,Total 0.3 mg/dL (0.2-1.3); Blood Urea Nitrogen 17 mg/dL (7-17); CRP 6.5 mg/dL (<1.0); Calcium 7.1 mg/dL (8.4-10.2); Carbon Dioxide 26 mmol/L (22-30); Chloride 107 mmol/L (98-107); Estimated CRCL calculation 115 ml/min; Estimated Glomerular Filt Rate > 60; Glucose 118 mg/dL (65-105); Magnesium 1.6 mg/dL (1.6-2.3); Phosphorus 4.2 mg/dL (2.5-4.5); Potassium 3.6 mmol/L (3.4-5.0); Sodium 141 mmol/L (137-145)
[2019-12-23] MEDS: LACTATED RINGERS 1,000 ML 75 ML IV CONT (06:15)
[2019-12-23 07:18] LABS: Add Urine Microscopic? YES; Appearance Urine Clear (Clear); Bacteria Urine Trace /hpf; Bilirubin Urine Negative (Negative); Blood Urine 1+ (Negative); Color Urine Straw (Yellow); Glucose Urine UA Negative (Negative); Ketones Urine Negative (Negative); Leukocyte Esterase Ur Negative LEU/UL (NEGATIVE); Mucus Urine Rare /lpf; Nitrate Urine Negative (Negative); Protein Urine Negative (Negative); RBC Urine 0-2 /hpf (0-2); Specific Grav Ur 1.015 (1.001-1.035); Squamous Epithelial Cell Urine Rare /hpf (Few); Urobilinogen Urine Negative mg/dL (<2.0); WBC Urine 0-3 /hpf (0-3)
[2019-12-23 08:14] LABS: Amphetamine Screen Urine Negative (Negative); Barbiturate Screen Urine Negative (Negative); Benzodiazepines Screen Urine Positive (Negative); Cannabinoid Screen Urine Negative (Negative); Cocaine Screen Urine Negative (Negative); Methadone Screen Urine Negative (Negative); Opiate Screen Urine Negative (Negative); Phencyclidine Screen Urine Negative (Negative)
[2019-12-23] MEDS: MAGNESIUM SULF 2 GM/WATER 50ML 2 GM/50 ML BAG IVPB (08:15)
[2019-12-23] MEDS: ENOXAPARIN 40 MG/0.4 ML SYRINGE SUB-Q (08:18)
[2019-12-23] MEDS: PANTOPRAZOLE SODIUM IV 40 MG VIAL IV PUSH (08:19)
[2019-12-23] MEDS: levETIRAcetam 1000MG/NACL100ML 1,000 MG/100 ML BAG 400 MG IVPB ×2 (08:19→20:26)
--- NOTE | 2019-12-23 09:55 | WPDINTPN ---
Progress Note: A&P Assessment and Plan (1) Cardiac arrest: Code(s): I46.9 - Cardiac arrest, cause unspecified Status: Acute Assessment and Plan: cardiac arrest, unknown etiology could be related to cardiac arrhythmia, respiratory event, coronary artery disease, patient has not seen a doctor in a long time and does not have any known medical history - myoclonic jerks observed - poor prognostic sign post cardiac arrest, started on Keppra - will place patient on hypothermia protocol right IJ central line placed. - Cardiology has been consulted for left bundle branch block seen on EKG - troponins trending up from 0.102 to 1.83 (2) Acute respiratory failure: Code(s): J96.00 - Acute respiratory failure, unspecified whether with hypoxia or hypercapnia Status: Acute Assessment and Plan: acute respiratory failure likely related to cardiac arrest, pulmonary edema, pneumonia, CHF - patient intubated on 12/22/2019 - on CMV mode of ventilation, peep of 8, 50% FiO2, - chest CT and chest x-ray reviewed, no PE, ABGs reviewed, ventilator adjusted - patient started on ceftriaxone and azithromycin, - sedated with propofol, Versed and fentanyl infusions, will discontinue fentanyl and Versed and go up on the propofol S patient continues to have myoclonic jerks (3) Suspected COVID-19 virus infection: Code(s): R68.89 - Other general symptoms and signs Status: Acute Assessment and Plan: SARS-CoV-2 PCR Has been obtained and pending results. - Will place patient on Airborne, droplet and contact precautions. (4) Bilateral pulmonary infiltrates on chest x-ray: Code(s): R91.8 - Other nonspecific abnormal finding of lung field Status: Acute Assessment and Plan: bilateral pulmonary infiltrates, possible pneumonia, suspected COVID-19 pneumonia - antibiotics as above (5) Pulmonary edema: Code(s): J81.1 - Chronic pulmonary edema Status: Acute Assessment and Plan: resolved: pulmonary edema noted on the chest x-ray and CT scan - unknown history of congestive heart failure, - BNP 1160 - patient has been diuresing well, will hold diuresis (6) Myoclonic jerking: Code(s): G25.3 - Myoclonus Status: Acute Assessment and Plan: patient continues to have myoclonic jerking, increased Keppra to 1000 mg q.12 hours - added Dilantin IV - patient is on Ativan p.r.n. - neurology has been consulted - once patient is rewarming will obtain EEG (7) Dietary counseling and surveillance: Code(s): Z71.3 - Dietary counseling and surveillance Status: Acute Assessment and Plan: NPO for now (8) DVT prophylaxis: Code(s): Z29.9 - Encounter for prophylactic measures, unspecified Status: Acute Assessment and Plan: DVT prophylaxis: Lovenox stress ulcer prophylaxis: Protonix Additional Plan 12/22/2027 with discussed with son Speedy Berger and updated him with patient's condition, plan of care. I discussed with him in details regarding hypothermia protocol post cardiac arrest, updated him that I placed a central line, he is aware that patient will be cold for 24 hours and did removed. I also discussed with him the myoclonic jerks/seizures. He is aware that cardiology and Neurology will be following the patient along with me. will update son again today Code status: Full code Critical care time spent: 34 minutes Due to a high probability of clinically significant, life threatening deterioration, the patient required my highest level of preparedness to intervene emergently and I personally spent this critical care time directly and personally managing the patient. This critical care time included obtaining a history; examining the patient; pulse oximetry; ordering and review of studies; arranging urgent treatment with development of a management plan; evaluation of patient's response to treatment
[2019-12-23] MEDS: PHENYTOIN SODIUM INJ 100 MG/2 ML VIAL (*BKC) IV PUSH (11:21)
[2019-12-23] MEDS: SODIUM CHLORIDE 0.9% IV 1,000 ML 1 ML (11:22)
--- NOTE | 2019-12-23 11:26 | P.PCNBED_ITS ---
Procedures Arterial Line Arterial Line Date: 12/23/19 Arterial Line Time: 11:10 Discussed with the patient/family/POA, the placement of an arterial catheter, including its clinical necessity/indication and associated potential risks, benefits and alternatives.: Yes Patient/family/POA and/or understands and acknowledges the need to proceed with the arterial catheter insertion as an important element of the patient's clinical management.: Yes Patient Position: supine Planning Division Superintendent Prep: sterile gown, sterile gloves and mask Site: right and femoral Site Prep: chlorhexidine Technique used: ultrasound-guided Length: 12 cm Closure/Dressing: suture, antimicrobial disc and tegaderm Patient tolerated procedure: well Complications: none
--- NOTE | 2019-12-23 11:53 | WPDNEURCNPN ---
Assessment and Plan Assessment and plan (1) Elevated LFTs: Code(s): R79.89 - Other specified abnormal findings of blood chemistry Status: Acute (2) Lactic acidosis: Code(s): E87.2 - Acidosis Status: Acute (3) Myoclonic jerking: Code(s): G25.3 - Myoclonus Status: Acute (4) Suspected 2019-nCoV infection: Code(s): R68.89 - Other general symptoms and signs Status: Acute (5) DVT prophylaxis: Code(s): Z29.9 - Encounter for prophylactic measures, unspecified Status: Acute (6) Cardiac arrest: Code(s): I46.9 - Cardiac arrest, cause unspecified Status: Acute (7) Acute respiratory failure: Code(s): J96.00 - Acute respiratory failure, unspecified whether with hypoxia or hypercapnia Status: Acute (8) Hypothermia: Code(s): T68.XXXA - Hypothermia, initial encounter Status: Acute (9) Suspected COVID-19 virus infection: Code(s): R68.89 - Other general symptoms and signs Status: Acute Additional Plan discussed with the director of securities and real estate the present management needs to be continued the prognosis seems to be poor at this time as the seizures started within a short PT of time I have a having the cardiac arrest this is an ominous sign Consult date: 12/23/19 Time Seen: 11:30 HPI: Cris Phan is a 69 year old female who is status post cardiac arrest and within short period of time she started having myoclonic seizures she is intubated on hypothermia protocol and obviously neurological examination is limited because of the sedation and the medication she is on however the history was reviewed not only from the records but also talking to the director of securities and real estate in detail the labs were reviewed the patient is on levetiracetam and also she is going to be added with valproic acid IV as she is still having myoclonic jerks periodically in spite of being sedated and on hypothermia The initial CT head was negative Review of Systems Review of Systems: ROS unobtainable: Yes unobtainable due to endotracheal tube PMFSH Past Medical History Medical History Hepatic steatosis 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 Surgical History Surgical History No significant past surgical history Family History Family History Other Unknown family medical history Social History Social History Smoking status: Never smoker Alcohol intake: current Drinks per week: 12 Substance use: never Substance use type: does not use Living arrangements: with family Additional living arrangements comments: Patient lives in [place] with her daughter. Occupation/Education: retired Spiritual care concerns: No Agree to blood products: Yes Meds Home Medications and Allergies Allergies Allergy/AdvReac Type Severity Reaction Status Date / Time No Known Allergies Allergy Verified 12/22/19 10:05 Vital Signs Vital Signs - 24 hr 12/22/19 11:55 12/22/19 12:05 12/22/19 12:18 Temperature 34.2 C L 34.8 C L Pulse Rate 85 82 93 Respiratory Rate 18 21 H Blood Pressure 117/76 147/83 H Pulse Oximetry 96 91 90 12/22/19 14:00 12/22/19 14:43 12/22/19 15:31 Temperature 34.2 C L Pulse Rate 73 74 75 Respiratory Rate 20 Blood Pressure 136/75 Pulse Oximetry 99 98 96 12/22/19 16:00 12/22/19 17:17 12/22/19 18:00 Temperature 33.0 C L 32.9 C L Pulse Rate 78 87 72 Respiratory Rate 33 H 23 H Blood Pressure 128/86 121/67 Pulse Oximetry 98 97 98 12/22/19 19:55 12/22/19 20:00 12/22/19 20:09 Temperature 34.2 C L Pulse Rate 73 72 66 Respiratory Rate 22 H 22 H 22 H Blood Pressure 154/73 H Pulse Oximetry 99
[2019-12-23 12:36] LABS: Glucose Point of Care 110 (65-105)
[2019-12-23 12:52] LABS: Base Excess ABG -1.4 mEq/l (+/-2.0); Fractional Inspired Oxygen 50 %; Oxygen Content ABG 20.9 %vol (16.0-22.0); Oxygen Saturation ABG 97.3 % (95.0-100.0); Oxyhemoglobin 96.6 % THb (90.0-100.0); PO2 ABG 82.5 mmHg (80.0-100.0); PO2 FiO2 Ratio Arterial Blood 1.65 %; Total Hemoglobin 15.4 g/dL (12.0-18.0)
[2019-12-23 12:54] LABS: PCO2 ABG 23.1 mmHg (35.0-45.0); pH ABG 7.534 (7.350-7.450)
[2019-12-23 12:55] LABS: Arterial Blood Gas Ventilator rate 26 /MIN; Device VENTILATOR; Site Drawn ARTLINE
[2019-12-23 12:56] LABS: Arterial Blood Gas PEEP 8 cmH2O; Arterial Blood Gas Pressure Support 0 cmH2O; Arterial Blood Gas Tidal Volume 350 ml; Arterial Blood Gas Vent Mode CMV
--- NOTE | 2019-12-23 13:09 | PM.CNCAR ---
Assessment and Plan Assessment and plan (1) Cardiac arrest: Code(s): I46.9 - Cardiac arrest, cause unspecified Status: Acute Assessment and Plan: Reported asystolic arrest, successful resuscitation. Anoxic encephalopathy with ongoing myoclonic jerks concerning for status epilepticus. Hypothermia protocol. Antiepileptics initiated. Poor prognosis. 2D echocardiogram went patient rewarmed. Significant lactic acidosis. Prognosis and further cardiac evaluation dependent upon neurologic status and likelihood for recovery. Blood cultures negative, negative for pulmonary embolism on CT angiogram of the chest. Given clinical status it would not be appropriate to proceed with coronary angiography at this time. (2) Elevated troponin: Code(s): R79.89 - Other specified abnormal findings of blood chemistry Status: Acute Assessment and Plan: Troponin peaked at 1.83 in setting of asystolic arrest, ACLS resuscitation, hypothermia protocol. Unknown coronary disease status. Left bundle-branch block duration unknown. If asystolic arrest on likely precipitated by myocardial infarction, PE negative and CTA. Pulmonary vascular congestion noted on imaging. Aspirin 81 mg daily DVT prophylaxis. Further recommendations to follow. Further prognostication with 2D echocardiogram and post directly related to patient's neurologic recovery period (3) LBBB (left bundle branch block): Code(s): I44.7 - Left bundle-branch block, unspecified Status: Acute Assessment and Plan: Chronicity unknown. Ischemic workup depending on patient's neurologic status/recovery period 2D echocardiogram and repeat 12 lead EKG once patient has completed hypothermia protocol and is rewarmed. (4) Acute respiratory failure: Code(s): J96.00 - Acute respiratory failure, unspecified whether with hypoxia or hypercapnia Status: Acute Assessment and Plan: Remains intubated and sedated on mechanical ventilatory support. Still requiring significant FiO2. Managed by critical care. IV antibiotics, bronchodilator therap and ventilatory support y. Diuresis as needed. Patient does not appear to be significantly volume overloaded clinically at this time. Follow chest x-ray daily. (5) Myoclonic jerking: Code(s): G25.3 - Myoclonus Status: Acute Assessment and Plan: Concerning for status epilepticus. Antiepileptic therapy initiated. Poor prognostic indicator post cardiac arrest. Neurology has been consulted. (6) Lactic acidosis: Code(s): E87.2 - Acidosis Status: Acute Assessment and Plan: Resolving. Blood cultures negative. For critical care and primary service. History of Present Illness History of Present Illness Consult date/time: Date of service: 12/23/19 13:09 This is a cardiology consultation at the request of Dr. Jolly of the Critical Care Service for my opinion regarding left bundle-branch block, elevated troponin status post cardiac arrest. Requesting physician: Mishel Jolly MD Consult reason: Other (LBBB, elevated Troponin I) Reason For Visit: Post cardiac arrest. Narrative: 69-year-old female with no known past medical history as she has not had consistent medical care who presented emergency department on December 21 after asystolic cardiac arrest. Information is obtained through the electronic medical record as patient is unable to provide history as she is sedated and on mechanical ventilatory support. For electronic medical record, patient resides with her daughter who was at work and received a phone call from her mother indicating something was wrong. When she arrived at the house her mother was lying on the bed moving but somewhat incoherent and summoned EMS. Upon arrival patient was in asystole CPR was initiated per ACLS protocol and spontaneous resuscitation was obtained. It is estimated patient had 15 minutes of down time. Patient was given IV fluids
[2019-12-23 14:01] LABS: SARS-CoV-2 RNA PCR Negative
--- NOTE | 2019-12-23 16:21 | PC.NURSE ---
started re-warming at 1600 per protocol
[2019-12-23] MEDS: VALPROIC ACID INJ 500 MG in DEXTROSE 5% 100 ML 100 MG IVPB (17:29)
[2019-12-23 17:32] LABS: Glucose Point of Care 138 (65-105)
--- NOTE | 2019-12-23 17:36 | P.PNIM_ITS ---
Progress Note: A&P Assessment and Plan (1) Cardiac arrest: Code(s): I46.9 - Cardiac arrest, cause unspecified Status: Acute Assessment and Plan: * Patient was reportedly in asystole on EMS arrival, with return of spontaneous circulation after 2 rounds of CPR/epinephrine. * Precipitating etiology not clear. Differential includes possible cardiac event (EKG demonstrates left bundle branch block with troponin elevation), cardiac dysrhythmia, respiratory event (diffuse bilateral pulmonary infiltrates on EKG, edema versus pneumonia versus COVID-19). * Cardiology consulted due to presence of left bundle branch block and elevated troponin. * Echocardiogram has been ordered as well. * She did demonstrate myoclonic jerking on admission and Keppra was started (2) Acute respiratory failure: Code(s): J96.00 - Acute respiratory failure, unspecified whether with hypoxia or hypercapnia Status: Acute Assessment and Plan: * Empiric ceftriaxone and azithromycin for possible pneumonia. * SARS-CoV-2 PCR specimen has been obtained and is negative * Chest x-ray may reflect pulmonary edema with elevated BNP. Echo pending * Currently intubated with vent management per Dr. Jolly. (3) Bilateral pulmonary infiltrates on chest x-ray: Code(s): R91.8 - Other nonspecific abnormal finding of lung field Status: Acute Assessment and Plan: * As detailed above, differential diagnosis includes pulmonary edema, pneumonia, . * Plan is as detailed above. (4) Lactic acidosis: Code(s): E87.2 - Acidosis Status: Acute Assessment and Plan: * Presumably due to cardiopulmonary arrest, but cannot rule out sepsis. * Blood in urine cultures have been obtained and are pending. * Will attempts sputum for culture as well. * Lactic acid has improved markedly with IV fluid rehydration. (5) Elevated LFTs: Code(s): R79.89 - Other specified abnormal findings of blood chemistry Status: Acute Assessment and Plan: * Right upper quadrant ultrasound demonstrates fatty infiltration of the liver. * Most likely these are elevated due to shock liver. * Will trend Subjective Date/time seen: 12/23/19 17:36 Interval history: Date of visit 12/22. 69-year-old white female admitted after cardiac arrest. Currently mechanically ventilated on cooling protocol and s edated Exam Narrative: Exam Narrative: Blood pressure 156/76 pulse 70 sat 97% on FiO2 50 with PEEP of 8 Pupils equal reactive to light Lungs clear CV no murmurs Extremities without edema Abdomen benign Neuro sedated Objective Data Vital Signs Vital Signs: Vital Signs - 24 hr 12/22/19 18:00 12/22/19 19:55 12/22/19 20:00 Temperature 32.9 C L 34.2 C L Pulse Rate 72 73 72 Respiratory Rate 23 H 22 H 22 H Blood Pressure 121/67 154/73 H Pulse Oximetry 98 99 12/22/19 20:09 12/22/19 20:20 12/22/19 22:00 Temperature Pulse Rate 66 66 66 Respiratory Rate 22 H 22 H Blood Pressure 101/68 Pulse Oximetry 98 99 12/22/19 23:17 12/23/19 00:00 12/23/19 02:00 Temper
--- NOTE | 2019-12-23 17:36 | PM.IMPN ---
Progress Note: A&P Assessment and Plan (1) Cardiac arrest: Code(s): I46.9 - Cardiac arrest, cause unspecified Status: Acute Assessment and Plan: Patient was reportedly in asystole on EMS arrival, with return of spontaneous circulation after 2 rounds of CPR/epinephrine. Precipitating etiology not clear. Differential includes possible cardiac event (EKG demonstrates left bundle branch block with troponin elevation), cardiac dysrhythmia, respiratory event (diffuse bilateral pulmonary infiltrates on EKG, edema versus pneumonia versus COVID-19). Cardiology consulted due to presence of left bundle branch block and elevated troponin. Echocardiogram has been ordered as well. She did demonstrate myoclonic jerking on admission and Keppra was started (2) Acute respiratory failure: Code(s): J96.00 - Acute respiratory failure, unspecified whether with hypoxia or hypercapnia Status: Acute Assessment and Plan: Empiric ceftriaxone and azithromycin for possible pneumonia. SARS-CoV-2 PCR specimen has been obtained and is negative Chest x-ray may reflect pulmonary edema with elevated BNP. Echo pending Currently intubated with vent management per Dr. Jolly. (3) Bilateral pulmonary infiltrates on chest x-ray: Code(s): R91.8 - Other nonspecific abnormal finding of lung field Status: Acute Assessment and Plan: As detailed above, differential diagnosis includes pulmonary edema, pneumonia, . Plan is as detailed above. (4) Lactic acidosis: Code(s): E87.2 - Acidosis Status: Acute Assessment and Plan: Presumably due to cardiopulmonary arrest, but cannot rule out sepsis. Blood in urine cultures have been obtained and are pending. Will attempts sputum for culture as well. Lactic acid has improved markedly with IV fluid rehydration. (5) Elevated LFTs: Code(s): R79.89 - Other specified abnormal findings of blood chemistry Status: Acute Assessment and Plan: Right upper quadrant ultrasound demonstrates fatty infiltration of the liver. Most likely these are elevated due to shock liver. Will trend Subjective Date/time seen: 12/23/19 17:36 Interval history: Date of visit 12/22. 69-year-old white female admitted after cardiac arrest. Currently mechanically ventilated on cooling protocol and sedated Exam Narrative: Exam Narrative: Blood pressure 156/76 pulse 70 sat 97% on FiO2 50 with PEEP of 8 Pupils equal reactive to light Lungs clear CV no murmurs Extremities without edema Abdomen benign Neuro sedated Objective Data Vital Signs Vital Signs: Vital Signs - 24 hr 12/22/19 18:00 12/22/19 19:55 12/22/19 20:00 Temperature 32.9 C L 34.2 C L Pulse Rate 72 73 72 Respiratory Rate 23 H 22 H 22 H Blood Pressure 121/67 154/73 H Pulse Oximetry 98 99 12/22/19 20:09 12/22/19 20:20 12/22/19 22:00 Temperature Pulse Rate 66 66 66 Respiratory Rate 22 H 22 H Blood Pressure 101/68 Pulse Oximetry 98 99 12/22/19 23:17 12/23/19 00:00 12/23/19 02:00 Temperature 33.4 C L Pulse Rate 75 84 85 Respiratory Rate 20 20 Blood Pressure 112/64 117/78 Pulse Oximetry 99 98 98 12/23/19 02:28 12/23/19 02:29 12/23/19 02:34 Temperature Pulse Rate 95 93 84 Respiratory Rate 24 H 24 H Blood Pressure Pulse Oximetry 98 12/23/19 04:00 12/23/19 05:17 12/23/19 06:00 Temperature 35.1 C L Pulse Rate 89 89 82 Respiratory Rate 23 H 24 H Blood Pressure 142/67 H 103/81 Pulse Oximetry 97 98 97 12/23/19 08:00 12/23/19 09:08 12/23/19 09:11 Temperature Pulse Rate 69 69 60 Respiratory Rate 26 H 26 H Blood Pressure 130/71 Pulse Oximetry 98 97 12/23/19
[2019-12-23] MEDS: PROPOFOL IV EMULSION 100 ML 19.9 MG IV CONT (21:47)
--- NOTE | 2019-12-23 22:10 | PC.NURSE ---
12/23/19 2030 report received from Jolynn Montoya RN and patient moved into room ICU 11.
[2019-12-24] VITALS (42 sets, daily range): BP systolic 142–182; BP diastolic 54–98; PULSE 85–116; RESP 21–28; TEMP 35.6–38.2; O2SAT 97–100; BMI 31.0
[2019-12-24] LABS: Glucose Point of Care 94 (65-105)
--- NOTE | 2019-12-24 | ECHO_ITS ---
Patient Info Name: Cris Phan Age: 69 years : 1950 Gender: Female Ht: 61 in Wt: 183 lbs BSA: 1.93 m2 HR: 98 bpm BP: 156 / 61 mmHg Heart Rhythm: Left Bundle Branch Block Technical Quality: Good Exam Date: 12/24/2019 10:25 AM Exam Location: [facility] Patient Status: Inpatient Admit Date: 12/22/2019 Staff Ordering Physician: Mishel Jolly MD [employer] Worker: Sonu Burciaga RDCS Attending Provider: Mireille Dawkins MD Referring Physician: Shanae COSTA; Exam Type: CA echo doppler color flow Study Info Indications I46.9 - Cardiac arrest, cause unspecified Complete two-dimensional, color flow and Doppler transthoracic echocardiogram is performed with contrast to opacify the left ventrical and to improve the deliniation of the left ventrical endocarial boarders. Strain analysis performed. Contrast/Agitated Saline Contrast/Ag. Saline: Definity Amount: 2.00 ml Administered By: Saray Garcia RN Existing IV Access: Yes History/Risk Factors Cardiac arrest; LBBB and elevated trops. Summary 1. Left ventricular chamber dimension is normal. 2. There is mild concentric increased left ventricular wall thickness. 3. Left atrial chamber dimension is mildly enlarged. 4. There is mild aortic valve sclerosis. 5. There is trace mitral valve regurgitation. 6. Definity contrast injected to improve visualization. 7. Left ventricular systolic function is mildly reduced, estimated at 45-50%. Left Ventricle Left ventricular chamber dimension is normal. Left ventricular systolic function is mildly reduced, estimated at 45-50%. There is mild concentric increased left ventricular wall thickness. Left ventricular septal wall motion is abnormal with septal motion related to bundle branch block. The left ventricular diastolic function is grade I diastolic dysfunction. Right Ventricle Right ventricular chamber dimension is normal. Left Atria Left atrial chamber dimension is mildly enlarged. Right Atria Right atrial chamber dimension is normal. Aortic Valve The aortic valve is trileaflet. There is mild aortic valve sclerosis. Pulmonic Valve The pulmonic valve is not well visualized. Mitral Valve The mitral valve has normal leaflets and calcified annulus. There is trace mitral valve regurgitation. Tricuspid Valve The tricuspid valve leaflets are normal. Pericardium/Pleural The pericardium appears normal. Aorta The aortic root size at the sinus of Valsalva is normal. Left Ventricular Outflow Tract Name Value Normal LVOT 2D LVOT Diameter 1.9 cm LVOT Doppler LVOT Peak Gradient 4 mmHg LVOT Mean Gradient 2 mmHg LVOT VTI 16 cm LVOT VTI/AV VTI Ratio 0.9 LVOT Stroke Volume 45 ml LVOT CO 4.5 l/min LVOT CI 2.3 l/min/m2 Mitral Valve
[2019-12-24] MEDS: LACTATED RINGERS 1,000 ML 75 ML IV CONT (00:10)
[2019-12-24] MEDS: VALPROIC ACID INJ 500 MG in DEXTROSE 5% 100 ML 100 MG IVPB ×5 (00:13→23:20)
[2019-12-24] MEDS: LORAZEPAM INJ 2 MG/ML VIAL IV PUSH ×2 (01:03→17:34)
[2019-12-24] MEDS: ALBUTEROL SULFATE NEB 2.5 MG/0.5 ML INH 5 MG INHALATION ×4 (01:41→20:33)
[2019-12-24 03:36] LABS: Alveolar/Arterial O2 Gradient 164.9 mmHg; Base Excess ABG -3.6 mEq/l (+/-2.0); Carboxyhemoglobin 0.3 % THb (0-2.0); Fractional Inspired Oxygen 45 %; HCO3 ABG 18.7 mEq/l (22.0-26.0); Methemoglobin ABG 0.4 %THb (0-1.5); Oxygen Content ABG 20.5 %vol (16.0-22.0); Oxygen Saturation ABG 98.8 % (95.0-100.0); Oxyhemoglobin 97.5 % THb (90.0-100.0); PCO2 ABG 27.2 mmHg (35.0-45.0); PO2 ABG 129.3 mmHg (80.0-100.0); PO2 FiO2 Ratio Arterial Blood 2.87 %; Reduced Hemoglobin 1.8 %THb (0-5.0); Total Hemoglobin 14.8 g/dL (12.0-18.0); pH ABG 7.455 (7.350-7.450)
[2019-12-24 03:37] LABS: Arterial Blood Gas Vent Mode CMV; Arterial Blood Gas Ventilator rate 24 /MIN; Device VENTILATOR; Site Drawn ARTLINE
[2019-12-24 03:38] LABS: Arterial Blood Gas PEEP 8 cmH2O; Arterial Blood Gas Tidal Volume 350 ml
[2019-12-24] MEDS: PROPOFOL IV EMULSION 100 ML 19.9 MG IV CONT (03:45)
[2019-12-24 05:15] LABS: Hematocrit 40.4 % (37.0-47.0); Hemoglobin 14.2 g/dL (12.0-15.0); Mean Corpuscular HGB Conc 35.1 g/dl (32-36); Mean Corpuscular Hemoglobin 30.7 pg (26-34); Mean Corpuscular Volume 87.4 fl (80-100); Mean Platelet Volume 9.6 fl (7.4-10.4); Platelet Count Result 202 k/mm3 (150-375); Red Blood Count 4.62 M/mm3 (4.2-5.4); Red Cell Distribution Width 12.8 % (11.5-14.5); White Blood Count 13.3 K/mm3 (4.5-10.0)
[2019-12-24 05:16] LABS: Lactic Acid 3.7 mmol/L (0.7-2.1)
[2019-12-24 05:27] LABS: Alanine Aminotransferase 44 U/L (4-35); Albumin Level 2.8 g/dL (3.5-5.1); Alkaline Phosphatase 67 U/L (38-126); Aspartate Amino Transferase 109 U/L (14-36); Bilirubin,Total 0.3 mg/dL (0.2-1.3); Blood Urea Nitrogen 16 mg/dL (7-17); Calcium 7.1 mg/dL (8.4-10.2); Carbon Dioxide 23 mmol/L (22-30); Chloride 105 mmol/L (98-107); Estimated CRCL calculation 69 ml/min; Estimated Glomerular Filt Rate > 60; Glucose 120 mg/dL (65-105); Magnesium 2.1 mg/dL (1.6-2.3); Potassium 2.7 mmol/L (3.4-5.0); Sodium 136 mmol/L (137-145)
[2019-12-24] MEDS: PROPOFOL IV EMULSION 100 ML 17.5 MG IV CONT (08:10)
--- NOTE | 2019-12-24 08:52 | PM.PNCARD ---
Progress Note: A&P Additional Plan Continue aggressive supportive care as we are doing Once the patient is extubated and her mental status is assessed we will determine plans for further workup which of course would include left heart catheterization at that time. If neurological outcome is poor this may not be appropriate Echocardiogram will be performed today Álvaro Alonzo MD [facility] Subjective Date/time seen: Date of service: 12/24/19 08:52 Interval history: Follow-up visit in 69-year-old lady with out of hospital cardiac arrest Remains in the ICU sedated on ventilator support. Hypothermia protocol is now completed patient is rewarmed Exam Const: Other: Sedated white female appears to be her stated age intubated on ventilator support HENMT: Mouth: Yes moist mucous membranes Eyes: Sclera: sclerae normal Pupils: Equal, round and reactive pupils present Neck: Neck: no JVD Carotids: bruit Other: Normal carotid pulses no bruits Resp: Effort & Inspection: normal respiratory effort Auscultation: clear to auscultation bilaterally Other: Normal symmetrical breath sounds with good air exchange Cardio: Rate: regular rate Rhythm: regular rhythm Other: No murmur S2 is paradoxically split GI: Auscultation: normal bowel sounds Urinary Catheter: Urinary Catheter: patent and draining Skin: General skin exam: normal color Neuro: Other: Sedated Extrem: General: normal to inspection Objective Data Vital Signs Vital Signs: Vital Signs - 24 hr 12/23/19 09:08 12/23/19 09:11 12/23/19 09:21 Temperature Pulse Rate 69 60 72 Respiratory Rate 26 H 27 H Blood Pressure Pulse Oximetry 97 12/23/19 10:00 12/23/19 12:00 12/23/19 12:57 Temperature Pulse Rate 56 L 57 L 61 Respiratory Rate 26 H 26 H Blood Pressure 149/92 H 151/62 H Pulse Oximetry 98 98 97 12/23/19 13:44 12/23/19 13:54 12/23/19 14:00 Temperature Pulse Rate 75 77 79 Respiratory Rate 27 H 27 H 24 H Blood Pressure 181/73 H Pulse Oximetry 98 12/23/19 16:00 12/23/19 16:42 12/23/19 18:00 Temperature 33.3 C L Pulse Rate 68 60 79 Respiratory Rate 24 H 24 H Blood Pressure 156/77 H 140/61 Pulse Oximetry 97 98 99 12/23/19 20:00 12/23/19 21:00 12/23/19 21:20 Temperature 37.2 C Pulse Rate 91 91 90 Respiratory Rate 25 H Blood Pressure 156/58 H Pulse Oximetry 99 98 12/23/19 21:25 12/23/19 21:35 12/23/19 22:00 Temperature 37.3 C Pulse Rate 89 92 96 Respiratory Rate 24 H 24 H 24 H Blood Pressure 150/56 H Pulse Oximetry 100 12/24/19 00:00 12/24/19 00:02 12/24/19 00:30 Temperature 37.2 C Pulse Rate 93 92 93 Respiratory Rate 25 H Blood Pressure 153/58 H Pulse Oximetry 100 100 12/24/19 01:41 12/24/19 01:50 12/24/19 02:00 Temperature 37.0 C Pulse Rate 90 93 96 Respiratory Rate 24 H 24 H 24 H Blood Pressure 143/54 H Pulse Oximetry 100 12/24/19 03:13 12/24/19 04:00 12/24/19 04:30 Temperature 35.9 C L Pulse Rate 95 87 85 Respiratory Rate 24 H Blood Pressure 162/66 H Pulse Oximetry 100 100 12/24/19 05:45 12/24/19 06:00 12/24/19 06:15 Temperature 35.9 C L 35.9 C L 35.6 C L Pulse Rate 87 87 89 Respiratory Rate 24 H 24 H 24 H Blood Pressure 148/64 H 147/62 H 152/94 H Pulse Oximetry 100 100 100 12/24/19 06:29 12/24/19 06:46 12/24/19 06:58 Temperature 35.8 C L 36.0 C L 36.1 C L Pulse Rate 90 91 89 Respiratory Rate 24 H 24 H 24 H Blood Pressure 149/61 H 145/62 H 147/62 H Pulse Oximetry 100 100 100 12/24/19 07:14 Temperature 36.1 C L Pulse Rate 92 Respiratory Rate 24 H Blood Pressure 142/61 H Pulse Oximetry 100 Intake/Output Intake/Output: Intake & Output 12/21/19 12/22/19 12/23/19 12/24/19 23:59 23:59 23:59 23:59 Intake Total 9731 1656 168 Output Total 9492 1400 475 Balance -205 929 323 Meds/Results Medications: Active Medications Generic Name Dose Route Start Last Admin Trade Name Freq PRN Reason Stop Dose Admin Aceta
[2019-12-24] MEDS: levETIRAcetam 1000MG/NACL100ML 1,000 MG/100 ML BAG 400 MG IVPB ×3 (09:19→23:19)
[2019-12-24] MEDS: PANTOPRAZOLE SODIUM IV 40 MG VIAL IV PUSH (09:19)
[2019-12-24] MEDS: ENOXAPARIN 40 MG/0.4 ML SYRINGE SUB-Q (09:19)
[2019-12-24] MEDS: POTASSIUM CHLORIDE 20 MEQ PACKET (FOR LIQUID) 40 MEQ PO (09:19)
--- NOTE | 2019-12-24 09:28 | WPDINTPN ---
Progress Note: A&P Assessment and Plan (1) Cardiac arrest: Code(s): I46.9 - Cardiac arrest, cause unspecified Status: Acute Assessment and Plan: cardiac arrest, unknown etiology could be related to cardiac arrhythmia, respiratory event, coronary artery disease, patient has not seen a doctor in a long time and does not have any known medical history - myoclonic jerks observed - poor prognostic sign post cardiac arrest, started on Keppra - STATUS POST HYPOTHERMIA PROTOCOL, PATIENT HAS BEEN REWARMED. - appreciate cardiology evaluation recommendations - patient with left bundle-branch block of unkown duration - troponins trending up from 0.102 to 1.83 - blood and urine cultures are negative, will discontinue IV antibiotics (2) Acute respiratory failure: Code(s): J96.00 - Acute respiratory failure, unspecified whether with hypoxia or hypercapnia Status: Acute Assessment and Plan: acute respiratory failure likely related to cardiac arrest, pulmonary edema, pneumonia, CHF - patient intubated on 12/22/2019 - on CMV mode of ventilation, peep of 8, 40% FiO2, decrease peep to 5 - chest CT and chest x-ray reviewed, no PE, ABGs reviewed, ventilator adjusted - patient started on ceftriaxone and azithromycin, - sedated with propofol, Versed and fentanyl infusions, will discontinue fentanyl and Versed and go up on the propofol S patient continues to have myoclonic jerks (3) Suspected COVID-19 virus infection: Code(s): R68.89 - Other general symptoms and signs Status: Acute Assessment and Plan: SARS-CoV-2 PCR negative - will remove patient from Airborne, droplet and contact precautions. (4) Bilateral pulmonary infiltrates on chest x-ray: Code(s): R91.8 - Other nonspecific abnormal finding of lung field Status: Acute Assessment and Plan: bilateral pulmonary infiltrates, possible pneumonia, suspected COVID-19 pneumonia - chest x-ray is clear - will discontinue antibiotics (5) Pulmonary edema: Code(s): J81.1 - Chronic pulmonary edema Status: Acute Assessment and Plan: resolved: pulmonary edema noted on the chest x-ray and CT scan - unknown history of congestive heart failure, - BNP 1160 - patient has been diuresing well, will hold diuresis (6) Myoclonic jerking: Code(s): G25.3 - Myoclonus Status: Acute Assessment and Plan: patient continues to have myoclonic jerking, increased Keppra to 1000 mg q.8hours , patient on valproic acid 500 mg q.8 hours - patient is on Ativan p.r.n. - appreciate Neurology evaluation recommendation. - will obtain EEG today (7) Dietary counseling and surveillance: Code(s): Z71.3 - Dietary counseling and surveillance Status: Acute Assessment and Plan: will start tube feeds (8) DVT prophylaxis: Code(s): Z29.9 - Encounter for prophylactic measures, unspecified Status: Acute Assessment and Plan: DVT prophylaxis: Lovenox stress ulcer prophylaxis: Protonix Additional Plan will discuss with son and daughter 12/23/2027 with discussed with son Speedy Berger and updated him with patient's condition, plan of care. I discussed with him in details regarding hypothermia protocol post cardiac arrest, updated him that I placed a central line, he is aware that patient will be cold for 24 hours and did removed. I also discussed with him the myoclonic jerks/seizures. He is aware that cardiology and Neurology will be following the patient along with me. Code status: Full code Critical care time spent: 33 minutes Due to a high probability of clinically significant, life threatening deterioration, the patient required my highest level of preparedness to intervene emergently and I personally spent this critical care time directly and personally managing the patient. This critical care time included obtaining a history; examining
--- NOTE | 2019-12-24 10:45 | PCDIET ---
Nutrition Follow-Up Complete: Nutrition Diagnosis: Inadequate oral intake related to oral intubation as evidenced by NPO state. Nutrition Goal: Patient to meet estimated nutritional needs. Goal in progress. MD ordered to start tube feedings this date. Recommend Vital 1.2 at goal rate of 35mL/hr x 22 hours/day with Pro-Stat BID for 1124kcal (1586kcal with Propofol at current rate), 90g protein and 624mL free water. Recommend 30mL water flush every 4 hours. Last recorded weight is 74.5 kg which is decreased. Bowel Motility: Last BM documented on 12/22/19 x 1. Labs Reviewed: Glu (120), K (2.7), Na (136), Alb (2.8), Mel[place] Ca (8.06) Meds Noted: Propofol (current rate of 17.5mL/hr providing 462kcal over 24 hours), Zithromax, Rocephin, Protonix, KCl, Versed, Novolog, LR at 75mL/hr Additional Notes: Plan to taper Propofol today and stop IV fluids once tube feedings initiate. No open areas reported. Will continue to monitor with same goal. Nutrition Monitoring and Evaluation: Follow up every Friday/Friday. Follow daily in ICU rounds.
[2019-12-24] MEDS: PERFLUTREN LIPID MICROSPHERES 1.5 ML VIAL DILUTED TO 10 ML TOTAL VOLUME IV PUSH (10:57)
[2019-12-24 11:42] LABS: Potassium 4.3 mmol/L (3.4-5.0)
[2019-12-24 12:42] LABS: Glucose Point of Care 71 (65-105)
[2019-12-24 12:43] LABS: Procalcitonin 1.18 ng/mL (<0.10)
--- NOTE | 2019-12-24 12:44 | WPDNEUROPN ---
Objective Data Vital Signs Vital Signs: Vital Signs - 24 hr 12/23/19 12:57 12/23/19 13:44 12/23/19 13:54 Temperature Pulse Rate 61 75 77 Respiratory Rate 27 H 27 H Blood Pressure Pulse Oximetry 97 12/23/19 14:00 12/23/19 16:00 12/23/19 16:42 Temperature 33.3 C L Pulse Rate 79 68 60 Respiratory Rate 24 H 24 H Blood Pressure 181/73 H 156/77 H Pulse Oximetry 98 97 98 12/23/19 18:00 12/23/19 20:00 12/23/19 21:00 Temperature 37.2 C Pulse Rate 79 91 91 Respiratory Rate 24 H 25 H Blood Pressure 140/61 156/58 H Pulse Oximetry 99 99 12/23/19 21:20 12/23/19 21:25 12/23/19 21:35 Temperature Pulse Rate 90 89 92 Respiratory Rate 24 H 24 H Blood Pressure Pulse Oximetry 98 12/23/19 22:00 12/24/19 00:00 12/24/19 00:02 Temperature 37.3 C Pulse Rate 96 93 92 Respiratory Rate 24 H Blood Pressure 150/56 H Pulse Oximetry 100 100 12/24/19 00:30 12/24/19 01:41 12/24/19 01:50 Temperature 37.2 C Pulse Rate 93 90 93 Respiratory Rate 25 H 24 H 24 H Blood Pressure 153/58 H Pulse Oximetry 100 12/24/19 02:00 12/24/19 03:13 12/24/19 04:00 Temperature 37.0 C Pulse Rate 96 95 87 Respiratory Rate 24 H Blood Pressure 143/54 H Pulse Oximetry 100 100 12/24/19 04:30 12/24/19 05:45 12/24/19 06:00 Temperature 35.9 C L 35.9 C L 35.9 C L Pulse Rate 85 87 87 Respiratory Rate 24 H 24 H 24 H Blood Pressure 162/66 H 148/64 H 147/62 H Pulse Oximetry 100 100 100 12/24/19 06:15 12/24/19 06:29 12/24/19 06:46 Temperature 35.6 C L 35.8 C L 36.0 C L Pulse Rate 89 90 91 Respiratory Rate 24 H 24 H 24 H Blood Pressure 152/94 H 149/61 H 145/62 H Pulse Oximetry 100 100 100 12/24/19 06:58 12/24/19 07:14 12/24/19 08:00 Temperature 36.1 C L 36.1 C L 36.9 C Pulse Rate 89 92 92 Respiratory Rate 24 H 24 H 21 H Blood Pressure 147/62 H 142/61 H 158/66 H Pulse Oximetry 100 100 100 12/24/19 08:55 12/24/19 10:00 12/24/19 10:06 Temperature Pulse Rate 94 101 H 93 Respiratory Rate 24 H 24 H Blood Pressure 160/64 H Pulse Oximetry 100 100 12/24/19 10:42 12/24/19 12:00 Temperature 37.2 C Pulse Rate 102 H 101 H Respiratory Rate 23 H Blood Pressure 143/98 H Pulse Oximetry 99 100 Intake/Output Intake/Output: Intake & Output 12/21/19 12/22/19 12/23/19 12/24/19 23:59 23:59 23:59 23:59 Intake Total 1952 7591 938 Output Total 2160 1400 475 Balance -205 929 463 Meds/Results Medications: Active Medications Generic Name Dose Route Start Last Admin Trade Name Freq PRN Reason Stop Dose Admin Acetaminophen 650 mg 12/22/19 11:13 Tylenol Tablet PO Q4H PRN Mild Pain (1-3) or Fever Albuterol 5 mg 12/22/19 14:00 12/24/19 10:05 Albuterol Sulf Neb 2.5mg/0.5ml INHALATION 5 mg Q6HRT LISSETTE Administration Dextrose 12.5 gm 12/22/19 13:06 Dextrose 50% Syringe IV PUSH PRN PRN Hypoglycemia Protocol Enoxaparin Sodium 40 mg 12/23/19 09:00 12/24/19 09:19 Lovenox SUB-Q 40 mg DAILY LISSETTE Administration Glucagon 1 mg 12/22/19 13:06 Glucagon For Inj IM PRN PRN Hypoglycemia Protocol Glucose 15 gm 12/22/19 13:06 Glutose 15 PO PRN PRN Hypoglycemia Protocol Dextrose 1,000 mls @ 100 mls/hr 12/22/19 13:06 Dextrose 5% 1,000 Ml IVPB PRN PRN Hypoglycemia Protocol Lactated Ringer's 1,000 mls @ 75 mls/hr 12/22/19 15:25 12/24/19 05:49 Lr - Lactated Ringers Iv IV CONT 75 mls/hr .[id number] LISSETTE Infusion Propofol 100 mls @ 12.465 mls/hr 12/22/19 19:30 12/24/19 11:40 Diprivan IV CONT 25 mcg/kg/min .Q8H2M LISSETTE 12.5 mls/hr Titration Protocol 25 MCG/KG/MIN Midazolam HCl 50 mg in 100 mls @ 0 mls/hr 12/22/19 22:00 12/24/19 05:49 Versed 50 Mg/D5w 100 Ml IV CONT 0 mg/hr .Q0M LISSETTE 0 mls/hr Titration Protocol 0 MG/HR Valproate Sodium 500 mg/ 105 mls @ 100 mls/hr 12/23/19 18:00 12/24/19 11:21 Dextrose IVPB
--- NOTE | 2019-12-24 12:45 | WPDNEUROPN ---
Progress Note: A&P Assessment and Plan (1) Elevated troponin: Code(s): R79.89 - Other specified abnormal findings of blood chemistry Status: Acute (2) LBBB (left bundle branch block): Code(s): I44.7 - Left bundle-branch block, unspecified Status: Acute (3) Elevated LFTs: Code(s): R79.89 - Other specified abnormal findings of blood chemistry Status: Acute (4) Lactic acidosis: Code(s): E87.2 - Acidosis Status: Acute (5) Myoclonic jerking: Code(s): G25.3 - Myoclonus Status: Acute (6) Suspected 2019-nCoV infection: Code(s): R68.89 - Other general symptoms and signs Status: Acute (7) Dietary counseling and surveillance: Code(s): Z71.3 - Dietary counseling and surveillance Status: Acute (8) DVT prophylaxis: Code(s): Z29.9 - Encounter for prophylactic measures, unspecified Status: Acute (9) Pulmonary edema: Code(s): J81.1 - Chronic pulmonary edema Status: Acute (10) Bilateral pulmonary infiltrates on chest x-ray: Code(s): R91.8 - Other nonspecific abnormal finding of lung field Status: Acute (11) Acute Massive Pulmonary Embolism: Code(s): I26.99 - Other pulmonary embolism without acute cor pulmonale Status: Acute (12) Cardiac arrest: Code(s): I46.9 - Cardiac arrest, cause unspecified Status: Acute (13) Acute respiratory failure: Code(s): J96.00 - Acute respiratory failure, unspecified whether with hypoxia or hypercapnia Status: Acute (14) Hypothermia: Code(s): T68.XXXA - Hypothermia, initial encounter Status: Acute (15) Suspected COVID-19 virus infection: Code(s): R68.89 - Other general symptoms and signs Status: Acute Additional Plan no change Review of Systems Review of Systems: All systems reviewed & are unremarkable except as noted in HPI and below Exam Eyes: Alignment and Position: position normal Eyelids: eyelids normal Conjunctivae: conjunctivae normal Sclera: sclerae normal Cornea: corneas normal EOM: movement deficit Neck: Neck: full ROM Resp: Auscultation: rhonchi GI: Auscultation: normal bowel sounds Neuro: Deep tendon reflexes (DTR's): Right triceps reflex intensity grade: 0, Left triceps reflex intensity grade: 0, Rt Biceps (C5, C6): 0, Left biceps reflex intensity grade: 0, Right brachioradialis reflex intensity grade: 0, Left brachioradialis reflex intensity grade: 0, Right patellar reflex intensity grade: 0, Left patellar reflex intensity grade: 0, Right ankle reflex intensity grade: 0 and Left ankle reflex intensity grade: 0 Plantar Reflex Responses: equivocal: bilateral Doll's-Eye Reflex: Absent Pupils: Pinpoint: bilateral Objective Data Vital Signs Vital Signs: Vital Signs - 24 hr 12/23/19 12:57 12/23/19 13:44 12/23/19 13:54 Temperature Pulse Rate 61 75 77 Respiratory Rate 27 H 27 H Blood Pressure Pulse Oximetry 97 12/23/19 14:00 12/23/19 16:00 12/23/19 16:42 Temperature 33.3 C L Pulse Rate 79 68 60 Respiratory Rate 24 H 24 H Blood Pressure 181/73 H 156/77 H Pulse Oximetry 98 97 98 12/23/19 18:00 12/23/19 20:00 12/23/19 21:00 Temperature 37.2 C Pulse Rate 79 91 91 Respiratory Rate 24 H 25 H Blood Pressure 140/61 156/58 H Pulse Oximetry 99 99 12/23/19 21:20 12/23/19 21:25 12/23/19 21:35 Temperature Pulse Rate 90 89 92 Respiratory Rate 24 H 24 H Blood Pressure Pulse Oximetry 98 12/23/19 22:00 12/24/19 00:00 12/24/19 00:02 Temperature 37.3 C Pulse Rate 96 93 92 Respiratory Rate 24 H Blood Pressure 150/56 H Pulse Oximetry 100 100 12/24/19 00:30 12/24/19 01:41 12/24/19 01:50 Temperature 37.2 C Pulse Rate 93 90 93 Respiratory Rate 25 H 24 H 24 H Blood Pressure 153/58 H Pulse Oximetry 100 12/24/19 02:00 12/24/19 03:13 12/24/19 04:00 Temperature 37.0 C Pulse Rate 96 95 87 Respiratory Rate 24 H Blood Pre
[2019-12-24] MEDS: ACETAMINOPHEN 325 MG TABLET 650 MG PO ×3 (14:00→23:47)
[2019-12-24] MEDS: hydrALAZINE HCL 20 MG/ML VIAL 10 MG IV PUSH ×2 (14:00→22:35)
[2019-12-24] MEDS: METOPROLOL TARTRATE 12.5 MG TABLET PO ×2 (14:00→20:25)
--- NOTE | 2019-12-24 16:32 | P.PNIM_ITS ---
Progress Note: A&P Assessment and Plan (1) Cardiac arrest: Code(s): I46.9 - Cardiac arrest, cause unspecified Status: Acute Assessment and Plan: * Patient was reportedly in asystole on EMS arrival, with return of spontaneous circulation after 2 rounds of CPR/epinephrine. * Precipitating etiology not clear. Differential includes possible cardiac event (EKG demonstrates left bundle branch block with troponin elevation), cardiac dysrhythmia, respiratory event (diffuse bilateral pulmonary infiltrates on EKG, edema versus pneumonia). * Cardiology consulted due to presence of left bundle branch block and elevated troponin. * Echocardiogram today EF 45-50%. * She did demonstrate myoclonic jerking on admission and Keppra was started (2) Acute respiratory failure: Code(s): J96.00 - Acute respiratory failure, unspecified whether with hypoxia or hypercapnia Status: Acute Assessment and Plan: * Empiric ceftriaxone and azithromycin for possible pneumonia initially but cxr clear today and negative cultures so antibiotics d/nikki * SARS-CoV-2 PCR specimen has been obtained and is negative * Chest x-ray clear today * Currently intubated with vent management per Dr. Jolly. (3) Bilateral pulmonary infiltrates on chest x-ray: Code(s): R91.8 - Other nonspecific abnormal finding of lung field Status: Acute Assessment and Plan: * As detailed above, differential diagnosis includes pulmonary edema, pneumonia, . * Plan is as detailed above. * probable secondary to pul edema with clearing relatively quickly (4) Lactic acidosis: Code(s): E87.2 - Acidosis Status: Acute Assessment and Plan: * Presumably due to cardiopulmonary arrest, but cannot rule out sepsis. * Blood in urine cultures have been obtained and are negative. * Will attempts sputum for culture as well. * Lactic acid improved markedly with IV fluid rehydration. (5) Elevated LFTs: Code(s): R79.89 - Other specified abnormal findings of blood chemistry Status: Acute Assessment and Plan: * Right upper quadrant ultrasound demonstrates fatty infiltration of the liver. * Most likely these are elevated due to shock liver. * Will trend as they are slowly falling Subjective Date/time seen: 12/24/19 16:32 Interval history: Date of visit 12/23. 69-year-old white female admitted after cardiac arrest. Currently mechanically ventilated on cooling protocol and sedated Exam Narrative: Exam Narrative: Blood pressure 146 /76 pulse 98 sat 100% on FiO2 40 with PEEP of 8 Pupils equal reactive to light Lungs clear CV no murmurs Extremities without edema Abdomen benign Neuro sedated Objective Data Vital Signs Vital Signs: Vital Signs - 24 hr 12/23/19 16:42 12/23/19 18:00 12/23/19 20:00 Temperature Pulse Rate 60 79 91 Respiratory Rate 24 H Blood Pressure 140/61 Pulse Oximetry 98 99 12/23/19 21:00 12/23/19 21:20 12/23/19 21:25 Temperature 37.2 C Pulse Rate 91 90 89 Respiratory Rate 25 H 24 H Blood Pressure 156/58 H Pulse Oximetry 99 98
--- NOTE | 2019-12-24 16:32 | PM.IMPN ---
Progress Note: A&P Assessment and Plan (1) Cardiac arrest: Code(s): I46.9 - Cardiac arrest, cause unspecified Status: Acute Assessment and Plan: Patient was reportedly in asystole on EMS arrival, with return of spontaneous circulation after 2 rounds of CPR/epinephrine. Precipitating etiology not clear. Differential includes possible cardiac event (EKG demonstrates left bundle branch block with troponin elevation), cardiac dysrhythmia, respiratory event (diffuse bilateral pulmonary infiltrates on EKG, edema versus pneumonia). Cardiology consulted due to presence of left bundle branch block and elevated troponin. Echocardiogram today EF 45-50%. She did demonstrate myoclonic jerking on admission and Keppra was started (2) Acute respiratory failure: Code(s): J96.00 - Acute respiratory failure, unspecified whether with hypoxia or hypercapnia Status: Acute Assessment and Plan: Empiric ceftriaxone and azithromycin for possible pneumonia initially but cxr clear today and negative cultures so antibiotics d/nikki SARS-CoV-2 PCR specimen has been obtained and is negative Chest x-ray clear today Currently intubated with vent management per Dr. Jolly. (3) Bilateral pulmonary infiltrates on chest x-ray: Code(s): R91.8 - Other nonspecific abnormal finding of lung field Status: Acute Assessment and Plan: As detailed above, differential diagnosis includes pulmonary edema, pneumonia, . Plan is as detailed above. probable secondary to pul edema with clearing relatively quickly (4) Lactic acidosis: Code(s): E87.2 - Acidosis Status: Acute Assessment and Plan: Presumably due to cardiopulmonary arrest, but cannot rule out sepsis. Blood in urine cultures have been obtained and are negative. Will attempts sputum for culture as well. Lactic acid improved markedly with IV fluid rehydration. (5) Elevated LFTs: Code(s): R79.89 - Other specified abnormal findings of blood chemistry Status: Acute Assessment and Plan: Right upper quadrant ultrasound demonstrates fatty infiltration of the liver. Most likely these are elevated due to shock liver. Will trend as they are slowly falling Subjective Date/time seen: 12/24/19 16:32 Interval history: Date of visit 12/23. 69-year-old white female admitted after cardiac arrest. Currently mechanically ventilated on cooling protocol and sedated Exam Narrative: Exam Narrative: Blood pressure 146 /76 pulse 98 sat 100% on FiO2 40 with PEEP of 8 Pupils equal reactive to light Lungs clear CV no murmurs Extremities without edema Abdomen benign Neuro sedated Objective Data Vital Signs Vital Signs: Vital Signs - 24 hr 12/23/19 16:42 12/23/19 18:00 12/23/19 20:00 Temperature Pulse Rate 60 79 91 Respiratory Rate 24 H Blood Pressure 140/61 Pulse Oximetry 98 99 12/23/19 21:00 12/23/19 21:20 12/23/19 21:25 Temperature 37.2 C Pulse Rate 91 90 89 Respiratory Rate 25 H 24 H Blood Pressure 156/58 H Pulse Oximetry 99 98 12/23/19 21:35 12/23/19 22:00 12/24/19 00:00 Temperature 37.3 C Pulse Rate 92 96 93 Respiratory Rate 24 H 24 H Blood Pressure 150/56 H Pulse Oximetry 100 12/24/19 00:02 12/24/19 00:30 12/24/19 01:41 Temperature 37.2 C Pulse Rate 92 93 90 Respiratory Rate 25 H 24 H Blood Pressure 153/58 H Pulse Oximetry 100 100 12/24/19 01:50 12/24/19 02:00 12/24/19 03:13 Temperature 37.0 C Pulse Rate 93 96 95 Respiratory Rate 24 H 24 H Blood Pressure 143/54 H Pulse Oximetry 100 100 12/24/19 04:00 12/24/19 04:30 12/24/19 05:45 Temperature 35.9 C L 35.9 C L Pulse Rate 87 85 87
[2019-12-24 17:32] LABS: Glucose Point of Care 103 (65-105)
[2019-12-24 17:32] LABS: Glucose Point of Care 48 (65-105)
[2019-12-24 20:39] LABS: Glucose Point of Care 67 (65-105)
[2019-12-24 20:39] LABS: Glucose Point of Care 114 (65-105)
[2019-12-24 23:45] LABS: Glucose Point of Care 84 (65-105)
[2019-12-24 23:45] LABS: Glucose Point of Care 46 (65-105)
[2019-12-24] MEDS: DEXTROSE 50% 25 GM/50 ML SYRINGE IV PUSH (23:47)
[2019-12-25] VITALS (37 sets, daily range): BP systolic 135–186; BP diastolic 53–68; PULSE 92–121; RESP 24–26; TEMP 37.7–38.4; O2SAT 95–100
[2019-12-25 00:27] LABS: Glucose Point of Care 129 (65-105)
[2019-12-25 00:27] LABS: Glucose Point of Care 201 (65-105)
[2019-12-25] MEDS: ALBUTEROL SULFATE NEB 2.5 MG/0.5 ML INH 5 MG INHALATION ×4 (01:43→20:02)
[2019-12-25 03:40] LABS: Alveolar/Arterial O2 Gradient 121.1 mmHg; Base Excess ABG -2.6 mEq/l (+/-2.0); Carboxyhemoglobin 0.3 % THb (0-2.0); Fractional Inspired Oxygen 35 %; HCO3 ABG 19.6 mEq/l (22.0-26.0); Methemoglobin ABG 0.3 %THb (0-1.5); Oxygen Content ABG 19.3 %vol (16.0-22.0); Oxygen Saturation ABG 97.8 % (95.0-100.0); Oxyhemoglobin 96.9 % THb (90.0-100.0); PCO2 ABG 27.5 mmHg (35.0-45.0); PO2 ABG 96.5 mmHg (80.0-100.0); PO2 FiO2 Ratio Arterial Blood 2.76 %; Reduced Hemoglobin 2.5 %THb (0-5.0); Total Hemoglobin 14.1 g/dL (12.0-18.0)
[2019-12-25 03:41] LABS: Arterial Blood Gas PEEP 5 cmH2O; Arterial Blood Gas Tidal Volume 350 ml; Arterial Blood Gas Vent Mode CMV; Arterial Blood Gas Ventilator rate 24 /MIN; Device VENTILATOR; Site Drawn ARTLINE
[2019-12-25] MEDS: hydrALAZINE HCL 20 MG/ML VIAL 10 MG IV PUSH ×2 (04:44→18:39)
[2019-12-25 05:07] LABS: Hematocrit 38.5 % (37.0-47.0); Hemoglobin 13.3 g/dL (12.0-15.0); Mean Corpuscular HGB Conc 34.5 g/dl (32-36); Mean Corpuscular Hemoglobin 31.1 pg (26-34); Mean Corpuscular Volume 90.2 fl (80-100); Mean Platelet Volume 9.8 fl (7.4-10.4); Platelet Count Result 180 k/mm3 (150-375); Red Blood Count 4.27 M/mm3 (4.2-5.4); Red Cell Distribution Width 13.9 % (11.5-14.5); White Blood Count 13.8 K/mm3 (4.5-10.0)
[2019-12-25 05:10] LABS: Lactic Acid 1.6 mmol/L (0.7-2.1)
[2019-12-25 05:11] LABS: Alanine Aminotransferase 38 U/L (4-35); Albumin Level 2.7 g/dL (3.5-5.1); Alkaline Phosphatase 67 U/L (38-126); Aspartate Amino Transferase 103 U/L (14-36); Bilirubin,Total 0.7 mg/dL (0.2-1.3); Blood Urea Nitrogen 21 mg/dL (7-17); Calcium 7.3 mg/dL (8.4-10.2); Carbon Dioxide 24 mmol/L (22-30); Chloride 106 mmol/L (98-107); Estimated CRCL calculation 62 ml/min; Estimated Glomerular Filt Rate > 60; Glucose 121 mg/dL (65-105); Magnesium 2.2 mg/dL (1.6-2.3); Potassium 3.6 mmol/L (3.4-5.0); Sodium 134 mmol/L (137-145)
[2019-12-25] MEDS: VALPROIC ACID INJ 500 MG in DEXTROSE 5% 100 ML 100 MG IVPB ×4 (05:29→23:43)
[2019-12-25] MEDS: PROPOFOL IV EMULSION 100 ML 7.5 MG IV CONT ×2 (06:26→21:01)
[2019-12-25] MEDS: PANTOPRAZOLE SODIUM IV 40 MG VIAL IV PUSH (08:22)
[2019-12-25] MEDS: ENOXAPARIN 40 MG/0.4 ML SYRINGE SUB-Q (08:22)
[2019-12-25] MEDS: levETIRAcetam 1000MG/NACL100ML 1,000 MG/100 ML BAG 400 MG IVPB ×3 (08:22→23:43)
[2019-12-25] MEDS: ACETAMINOPHEN 325 MG TABLET 650 MG PO (08:22)
[2019-12-25] MEDS: METOPROLOL TARTRATE 12.5 MG TABLET PO ×2 (08:22→21:16)
--- NOTE | 2019-12-25 09:49 | WPDINTPN ---
Progress Note: A&P Assessment and Plan (1) Cardiac arrest: Code(s): I46.9 - Cardiac arrest, cause unspecified Status: Acute Assessment and Plan: cardiac arrest, unknown etiology could be related to cardiac arrhythmia, respiratory event, coronary artery disease, patient has not seen a doctor in a long time and does not have any known medical history - myoclonic jerks observed - poor prognostic sign post cardiac arrest, started on Keppra And valproic acid - STATUS POST HYPOTHERMIA PROTOCOL, PATIENT HAS BEEN REWARMED. Target temperature which achieved almost 36 hours ago. - appreciate cardiology evaluation recommendations - patient with left bundle-branch block of unkown duration. Troponins trending up from 0.102 to 1.83. Cardiology evaluation recommendations appreciated. She would need to go to cardiac cathode washer once she is stable and her neurological status is adequate. - blood and urine cultures are negative. initially was on antibiotics but that has been discontinued yesterday. She still febrile. (2) Acute respiratory failure: Code(s): J96.00 - Acute respiratory failure, unspecified whether with hypoxia or hypercapnia Status: Acute Assessment and Plan: acute respiratory failure likely related to cardiac arrest, pulmonary edema, pneumonia, CHF - patient intubated on 12/22/2019 - on CMV mode of ventilation, peep of 8, 40% FiO2, decrease peep to 5. - chest CT and chest x-ray reviewed, no PE, ABGs reviewed, ventilator adjusted. She is not a candidate for SBT trial Because of mental status. - patient started on ceftriaxone and azithromycin. But now antibiotics have been stopped as cultures remain negative. She still have fever spike. - Initially was sedated with propofol, Versed and fentanyl infusions. now currently has been off sedatives. She requires propofol intermittently for my chronic jars. (3) Suspected COVID-19 virus infection: Code(s): R68.89 - Other general symptoms and signs Status: Acute Assessment and Plan: SARS-CoV-2 PCR negative Currently not on any precautions. (4) Bilateral pulmonary infiltrates on chest x-ray: Code(s): R91.8 - Other nonspecific abnormal finding of lung field Status: Acute Assessment and Plan: Initial chest x-ray showed bilateral pulmonary infiltrates with differential possible pneumonia vs suspected COVID-19 pneumonia. Initially she was on ceftriaxone and azithromycin. Now antibiotics have been started is cultures remain negative. She is still febrile. Will send cultures again. (5) Pulmonary edema: Code(s): J81.1 - Chronic pulmonary edema Status: Acute Assessment and Plan: resolved: pulmonary edema noted on the chest x-ray and CT scan - unknown history of congestive heart failure, - BNP 1160 - Echo Has been reported to have ejection fraction of 45-50%. Grade 1 diastolic dysfunction. Continue metoprolol. (6) Myoclonic jerking: Code(s): G25.3 - Myoclonus Status: Acute Assessment and Plan: patient continues to have myoclonic jerking, increased Keppra to 1000 mg q.8hours , patient on valproic acid 500 mg q.6 hours - patient is on Ativan p.r.n. - appreciate Neurology evaluation recommendation. - EEG will be performed when feasible. (7) Dietary counseling and surveillance: Code(s): Z71.3 - Dietary counseling and surveillance Status: Acute Assessment and Plan: Continue tube feeds (8) DVT prophylaxis: Code(s): Z29.9 - Encounter for prophylactic measures, unspecified Status: Acute Assessment and Plan: DVT prophylaxis: Lovenox stress ulcer prophylaxis: Protonix Additional Plan will discuss with son and daughter Code status: Full code Critical care time spent: 33 minutes Due to a high probability of clinically significant, life threatening deterioration, the patient requi
--- NOTE | 2019-12-25 10:14 | PM.PNCARD ---
Progress Note: A&P Assessment and Plan (1) Cardiac arrest: Code(s): I46.9 - Cardiac arrest, cause unspecified Status: Acute Assessment and Plan: Reported asystolic arrest, successful resuscitation. Anoxic encephalopathy with ongoing myoclonic jerks concerning for status epilepticus. Hypothermia protocol completed. Antiepileptics initiated. Poor prognosis. Prognosis and further cardiac evaluation dependent upon neurologic status and likelihood for recovery. Blood cultures negative, negative for pulmonary embolism on CT angiogram of the chest. (2) Elevated troponin: Code(s): R79.89 - Other specified abnormal findings of blood chemistry Status: Acute Assessment and Plan: Troponin peaked at 1.83 in setting of asystolic arrest, ACLS resuscitation, hypothermia protocol. Unknown coronary disease status. Left bundle-branch block duration unknown. Mild left ventricular dysfunction. Asystolic arrest not likely to have been precipitated by myocardial infarction, PE negative and CTA. Pulmonary vascular congestion noted on imaging Aspirin 81 mg daily DVT prophylaxis. (3) LBBB (left bundle branch block): Code(s): I44.7 - Left bundle-branch block, unspecified Status: Acute Assessment and Plan: Chronicity unknown. Ischemic workup depending on patient's neurologic status/recovery period (4) Acute respiratory failure: Code(s): J96.00 - Acute respiratory failure, unspecified whether with hypoxia or hypercapnia Status: Acute Assessment and Plan: Remains intubated and sedated on mechanical ventilatory support. Managed by critical care. IV antibiotics, bronchodilator therap and ventilatory support y. Patient does not appear to be significantly volume overloaded clinically at this time. Follow chest x-ray daily. (5) Myoclonic jerking: Code(s): G25.3 - Myoclonus Status: Acute Assessment and Plan: Concerning for status epilepticus. Antiepileptic therapy initiated. Poor prognostic indicator post cardiac arrest. Neurology has been consulted. (6) Lactic acidosis: Code(s): E87.2 - Acidosis Status: Acute Assessment and Plan: Resolving. Blood cultures negative. Subjective Date/time seen: 12/25/19 10:14 Interval history: Follow-up visit in 69-year-old lady with out of hospital cardiac arrest Date of service: 12/25/2019 Remains in the ICU sedated on ventilator support, FiO2 35%. Hypothermia protocol completed. Low-grade fever. COVID negative. On a small dose of propofol for myoclonic jerks but otherwise the sedation has been discontinued. Sedation was lightened up but patient is not waking up, no spontaneous movement. Chest x-ray not yet read, appears to me similar to yesterday. Echo results: EF 45-50%, diastolic dysfunction, no significant valve disease. Telemetry shows NSR. Review of Systems Review of Systems: Narrative: Review of systems was obtained from EMR and from the patient's nurse, Roderick. ROS unobtainable: Yes unobtainable due to endotracheal tube and unobtainable due to mental status Constitutional: Constitutional: Denies chills Comments: Low-grade temperature ENT: Denies epistaxis Cardiovascular: Cardiovascular: Reports no additional cardiovascular complaints Respiratory: Respiratory: Reports no additional respiratory complaints (Remains intubated) Gastrointestinal: Gastrointestinal: Reports no additional gastrointestinal complaints and Denies hematochezia Genitourinary: Genitourinary: Reports no additional female genitourinary complaints Musculoskeletal: Musculoskeletal: Reports no additional musculoskeletal complaints Integumentary/Breasts: Skin/Breast: Reports sys
[2019-12-25] MEDS: POTASSIUM PHOS,M-BASIC-D-BASIC 20 MMOL in SODIUM CHLORIDE 0.9% IV 250 ML 62.5 MMOL IVPB (11:28)
[2019-12-25 11:42] LABS: Glucose Point of Care 61 (65-105)
[2019-12-25 11:42] LABS: Glucose Point of Care 120 (65-105)
--- NOTE | 2019-12-25 15:04 | P.PNIM_ITS ---
Progress Note: A&P Assessment and Plan (1) Cardiac arrest: Code(s): I46.9 - Cardiac arrest, cause unspecified Status: Acute Assessment and Plan: * Patient was reportedly in asystole on EMS arrival, with return of spontaneous circulation after 2 rounds of CPR/epinephrine. * Precipitating etiology not clear. Differential includes possible cardiac event (EKG demonstrates left bundle branch block with troponin elevation), cardiac dysrhythmia, respiratory event (diffuse bilateral pulmonary infiltrates on EKG, edema versus pneumonia). * Cardiology consulted due to presence of left bundle branch block and elevated troponin. * Echocardiogram today EF 45-50%. 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 No hemorrhagic conversion * Pt started on Mannitol (2) Acute respiratory failure: Code(s): J96.00 - Acute respiratory failure, unspecified whether with hypoxia or hypercapnia Status: Acute Assessment and Plan: * Empiric ceftriaxone and azithromycin for possible pneumonia initially but cxr clear today and negative cultures so off iv abx * SARS-CoV-2 PCR specimen has been obtained and is negative * Currently intubated and sedated in icu (3) Bilateral pulmonary infiltrates on chest x-ray: Code(s): R91.8 - Other nonspecific abnormal finding of lung field Status: Acute Assessment and Plan: * Differential diagnosis includes pulmonary edema, pneumonia. (4) Lactic acidosis: Code(s): E87.2 - Acidosis Status: Acute Assessment and Plan: * Lactic acid improved markedly with IV fluid rehydration. (5) Elevated LFTs: Code(s): R79.89 - Other specified abnormal findings of blood chemistry Status: Acute Assessment and Plan: * Right upper quadrant ultrasound demonstrates fatty infiltration of the liver. * Most likely these are elevated due to shock liver. * Will trend as they are slowly falling Subjective Date/time seen: 12/25/19 15:04 Interval history: 69-year-old white female admitted after cardiac arrest and code. Currently mechanically ventilated, cooled and warm. Discussed case with icu attending, may be difficult to extubate pt. Review of Systems Review of Systems: ROS unobtainable: Yes unobtainable due to endotracheal tube Exam Narrative: Exam Narrative: Temp Pulse Resp BP Pulse Ox 38.2 C H 104 H 24 H 154/58 H 97 12/25/19 12:00 12/25/19 14:00 12/25/19 14:00 12/25/19 14:00 12/25/19 14:00 Pt is intubated and sedated in icu Objective Data Vital Signs Vital Signs: Vital Signs - 24 hr 12/24/19 15:52 12/24/19 16:00 12/24/19 16:55 Temperature 37.9 C H 37.9 C H Pulse Rate 1
--- NOTE | 2019-12-25 15:04 | PM.IMPN ---
Progress Note: A&P Assessment and Plan (1) Cardiac arrest: Code(s): I46.9 - Cardiac arrest, cause unspecified Status: Acute Assessment and Plan: Patient was reportedly in asystole on EMS arrival, with return of spontaneous circulation after 2 rounds of CPR/epinephrine. Precipitating etiology not clear. Differential includes possible cardiac event (EKG demonstrates left bundle branch block with troponin elevation), cardiac dysrhythmia, respiratory event (diffuse bilateral pulmonary infiltrates on EKG, edema versus pneumonia). Cardiology consulted due to presence of left bundle branch block and elevated troponin. Echocardiogram today EF 45-50%. 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 No hemorrhagic conversion Pt started on Mannitol (2) Acute respiratory failure: Code(s): J96.00 - Acute respiratory failure, unspecified whether with hypoxia or hypercapnia Status: Acute Assessment and Plan: Empiric ceftriaxone and azithromycin for possible pneumonia initially but cxr clear today and negative cultures so off iv abx SARS-CoV-2 PCR specimen has been obtained and is negative Currently intubated and sedated in icu (3) Bilateral pulmonary infiltrates on chest x-ray: Code(s): R91.8 - Other nonspecific abnormal finding of lung field Status: Acute Assessment and Plan: Differential diagnosis includes pulmonary edema, pneumonia. (4) Lactic acidosis: Code(s): E87.2 - Acidosis Status: Acute Assessment and Plan: Lactic acid improved markedly with IV fluid rehydration. (5) Elevated LFTs: Code(s): R79.89 - Other specified abnormal findings of blood chemistry Status: Acute Assessment and Plan: Right upper quadrant ultrasound demonstrates fatty infiltration of the liver. Most likely these are elevated due to shock liver. Will trend as they are slowly falling Subjective Date/time seen: 12/25/19 15:04 Interval history: 69-year-old white female admitted after cardiac arrest and code. Currently mechanically ventilated, cooled and warm. Discussed case with icu attending, may be difficult to extubate pt. Review of Systems Review of Systems: ROS unobtainable: Yes unobtainable due to endotracheal tube Exam Narrative: Exam Narrative: Temp Pulse Resp BP Pulse Ox 38.2 C H 104 H 24 H 154/58 H 97 12/25/19 12:00 12/25/19 14:00 12/25/19 14:00 12/25/19 14:00 12/25/19 14:00 Pt is intubated and sedated in icu Objective Data Vital Signs Vital Signs: Vital Signs - 24 hr 12/24/19 15:52 12/24/19 16:00 12/24/19 16:55 Temperature 37.9 C H 37.9 C H Pulse Rate 101 H 100 Respiratory Rate 24 H Blood Pressure 147/56 H Pulse Oximetry 100 99 12/24/19 17:41 12/24/19 17:58 12/24/19 18:55 Temperature 37.9 C H 38.0 C H 37.7 C H Pulse Rate 109 H Respiratory Rate 24 H Blood Pressure 156/63 H Pulse Oximetry 97 12/24/19 20:00 12/24/19 20:25 12/24/19 20:33 Temperature 37.7 C H Pulse Rate 100 101 H 103 H Respiratory Rate 24 H Blood Pressure 159/63 H Pulse Oximetry 99 98 12/24/19 20:34 12/24/19 20:44 12/24/19 21:25 Temperature Pulse Rate 103 H 106 H Respiratory Rate 24 H 26 H
[2019-12-25] MEDS: ACETAMINOPHEN 325 MG TABLET 650 MG FEED TUBE (15:32)
[2019-12-25] MEDS: MANNITOL 20% 500 ML 50 ML IV CONT (16:25)
[2019-12-25 18:04] LABS: Glucose Point of Care 106 (65-105)
[2019-12-25] MEDS: DEXTROSE 50% 25 GM/50 ML SYRINGE IV PUSH (23:49)
[2019-12-26] VITALS (32 sets, daily range): BP systolic 142–198; BP diastolic 53–74; PULSE 90–116; RESP 24–30; TEMP 37.7–38.2; O2SAT 96–98
[2019-12-26 00:11] LABS: Glucose Point of Care 69 (65-105)
[2019-12-26] MEDS: ALBUTEROL SULFATE NEB 2.5 MG/0.5 ML INH 5 MG INHALATION ×4 (02:26→19:56)
[2019-12-26] MEDS: MANNITOL 20% 500 ML 50 ML IV CONT (03:10)
[2019-12-26 03:37] LABS: Base Excess ABG -2.1 mEq/l (+/-2.0); Carboxyhemoglobin 0.1 % THb (0-2.0); Fractional Inspired Oxygen 35 %; HCO3 ABG 20.4 mEq/l (22.0-26.0); Methemoglobin ABG 0.3 %THb (0-1.5); Oxygen Content ABG 17.2 %vol (16.0-22.0); Oxygen Saturation ABG 97.4 % (95.0-100.0); Oxyhemoglobin 96.5 % THb (90.0-100.0); PCO2 ABG 28.5 mmHg (35.0-45.0); PO2 ABG 88.4 mmHg (80.0-100.0); PO2 FiO2 Ratio Arterial Blood 2.53 %; Reduced Hemoglobin 3.1 %THb (0-5.0); Total Hemoglobin 12.6 g/dL (12.0-18.0); pH ABG 7.473 (7.350-7.450)
[2019-12-26 03:38] LABS: Arterial Blood Gas PEEP 5 cmH2O; Arterial Blood Gas Tidal Volume 350 ml; Arterial Blood Gas Vent Mode CMV; Arterial Blood Gas Ventilator rate 24 /MIN; Device VENTILATOR; Site Drawn ARTLINE
[2019-12-26 04:40] LABS: Hemoglobin 11.5 g/dL (12.0-15.0); Mean Corpuscular HGB Conc 33.8 g/dl (32-36); Mean Corpuscular Hemoglobin 30.8 pg (26-34); Mean Corpuscular Volume 91.2 fl (80-100); Mean Platelet Volume 10.2 fl (7.4-10.4); Platelet Count Result 123 k/mm3 (150-375); Red Blood Count 3.73 M/mm3 (4.2-5.4); Red Cell Distribution Width 14.3 % (11.5-14.5); White Blood Count 11.6 K/mm3 (4.5-10.0)
[2019-12-26] MEDS: PROPOFOL IV EMULSION 100 ML 7.5 MG IV CONT (04:40)
[2019-12-26 04:50] LABS: Alanine Aminotransferase 28 U/L (4-35); Albumin Level 2.3 g/dL (3.5-5.1); Alkaline Phosphatase 64 U/L (38-126); Aspartate Amino Transferase 59 U/L (14-36); Bilirubin,Total 0.5 mg/dL (0.2-1.3); Blood Urea Nitrogen 19 mg/dL (7-17); Calcium 6.6 mg/dL (8.4-10.2); Carbon Dioxide 21 mmol/L (22-30); Chloride 107 mmol/L (98-107); Estimated CRCL calculation 71 ml/min; Estimated Glomerular Filt Rate > 60; Glucose 101 mg/dL (65-105); Lactic Acid 0.9 mmol/L (0.7-2.1); Phosphorus 2.1 mg/dL (2.5-4.5); Potassium 3.2 mmol/L (3.4-5.0); Sodium 132 mmol/L (137-145)
[2019-12-26] MEDS: VALPROIC ACID INJ 500 MG in DEXTROSE 5% 100 ML 100 MG IVPB ×4 (04:58→23:41)
[2019-12-26] MEDS: ACETAMINOPHEN 325 MG TABLET 650 MG FEED TUBE (08:22)
[2019-12-26] MEDS: levETIRAcetam 1000MG/NACL100ML 1,000 MG/100 ML BAG 400 MG IVPB ×2 (08:22→21:09)
[2019-12-26] MEDS: ASPIRIN 325 MG TABLET FEED TUBE (08:22)
[2019-12-26] MEDS: PANTOPRAZOLE SODIUM IV 40 MG VIAL IV PUSH (08:23)
[2019-12-26] MEDS: hydrALAZINE HCL 20 MG/ML VIAL 10 MG IV PUSH ×2 (08:23→23:45)
[2019-12-26] MEDS: ENOXAPARIN 40 MG/0.4 ML SYRINGE SUB-Q (08:23)
[2019-12-26] MEDS: METOPROLOL TARTRATE 12.5 MG TABLET PO ×2 (08:23→20:17)
[2019-12-26] MEDS: MANNITOL 20% 350 ML IV CONT (09:52)
--- NOTE | 2019-12-26 09:54 | WPDINTPN ---
Progress Note: A&P Assessment and Plan (1) Cardiac arrest: Code(s): I46.9 - Cardiac arrest, cause unspecified Status: Acute Assessment and Plan: cardiac arrest, unknown etiology could be related to cardiac arrhythmia, respiratory event, coronary artery disease, patient has not seen a doctor in a long time and does not have any known medical history - myoclonic jerks observed - poor prognostic sign post cardiac arrest, started on Keppra And valproic acid. She has not been noticed to have any further myoclonic chairs over the last 48 hours or so. Will decrease the dose of Keppra to 1 g twice a day from 3 times a day. Continue on folic acid. EEG will be performed in the a.m.. - CT scan of the head done yesterday showed extensive infarction in the left MCA territory. - STATUS POST HYPOTHERMIA PROTOCOL, PATIENT HAS BEEN REWARMED. Target temperature which achieved almost 2-3 days ago. - appreciate cardiology evaluation recommendations - patient with left bundle-branch block of unkown duration. Troponins trending up from 0.102 to 1.83. Cardiology evaluation recommendations appreciated. She would need to go to cardiac geoscience laboratory technician once she is stable and her neurological status is adequate. - blood and urine cultures are negative. initially was on antibiotics but that has been discontinued. She still consistently febrile. (2) Acute respiratory failure: Code(s): J96.00 - Acute respiratory failure, unspecified whether with hypoxia or hypercapnia Status: Acute Assessment and Plan: acute respiratory failure likely related to cardiac arrest, pulmonary edema, pneumonia, CHF - patient intubated on 12/22/2019 - on CMV mode of ventilation, peep of 5, 35% FiO2. She is not appropriate for SBT trial because of her mental status. - chest CT and chest x-ray reviewed, no PE, ABGs reviewed, ventilator adjusted. She is not a candidate for SBT trial Because of mental status. - patient started on ceftriaxone and azithromycin. But now antibiotics have been stopped as cultures remain negative. She still have fever spike. - Initially was sedated with propofol, Versed and fentanyl infusions. now currently has been off sedatives. She requires propofol intermittently for myclonic jerks but has been off it fro the last 36 hours. (3) Suspected COVID-19 virus infection: Code(s): R68.89 - Other general symptoms and signs Status: Acute Assessment and Plan: SARS-CoV-2 PCR negative Currently not on any precautions. (4) Bilateral pulmonary infiltrates on chest x-ray: Code(s): R91.8 - Other nonspecific abnormal finding of lung field Status: Acute Assessment and Plan: Initial chest x-ray showed bilateral pulmonary infiltrates with differential possible pneumonia vs suspected COVID-19 pneumonia. Initially she was on ceftriaxone and azithromycin. Antibiotics have been stopped 2 days ago cultures remain negative. She still consistently febrile. Cultures were sent yesterday again which has been negative so far. Would empirically start her on cefepime and vancomycin. Chest x-ray showing bilateral airspace disease specially in the bilateral lung bases. Her fever may be coming from the brain process. Will involve Infectious Disease Service for their recommendations. (5) Pulmonary edema: Code(s): J81.1 - Chronic pulmonary edema Status: Acute Assessment and Plan: resolved: pulmonary edema noted on the chest x-ray and CT scan - unknown history of congestive heart failure, - BNP 1160 - Echo Has been reported to have ejection fraction of 45-50%. Grade 1 diastolic dysfunction. Continue metoprolol. she has passed the time frame where she needed to have permissive hypertension. Can continue the metoprolol (6) Myoclonic jerking: Code(s): G25.3 - Myoclonus Status: Acute Assessment and Plan: No myoclonic jerks has been
[2019-12-26 12:56] LABS: Glucose Point of Care 119 (65-105)
--- NOTE | 2019-12-26 13:01 | PM.PNCARD ---
Progress Note: A&P Assessment and Plan (1) Cardiac arrest: Code(s): I46.9 - Cardiac arrest, cause unspecified Status: Acute Assessment and Plan: Asystolic arrest, successful resuscitation. Etiology not clear. No arrhythmias seen here though pt does have mildly decreased LV function and a LBBB. Has elevated troponin up to 1.8 so arrest could be 2nd myocardial ischemia, but no h/o CP and this level of troponin rise may simply be the result of the arrest. Negative for pulmonary embolism on CT angiogram of the chest. (2) Elevated troponin: Code(s): R79.89 - Other specified abnormal findings of blood chemistry Status: Acute Assessment and Plan: Troponin peaked at 1.83 in setting of asystolic arrest, ACLS resuscitation, hypothermia protocol. Unknown coronary disease status. Left bundle-branch block duration unknown. Mild left ventricular dysfunction. Pumonary vascular congestion noted on admission has resolved. Is not perfusing extremities well. Aspirin 81 mg daily DVT prophylaxis. (3) LBBB (left bundle branch block): Code(s): I44.7 - Left bundle-branch block, unspecified Status: Acute Assessment and Plan: Chronicity unknown. Ischemic workup depending on patient's neurologic status/recovery period (4) Acute respiratory failure: Code(s): J96.00 - Acute respiratory failure, unspecified whether with hypoxia or hypercapnia Status: Acute Assessment and Plan: Remains intubated and sedated on mechanical ventilatory support. Managed by critical care. IV antibiotics, bronchodilator therap and ventilatory support. Patient does not appear to be significantly volume overloaded clinically at this time. Follow chest x-ray daily. (5) Anoxic brain damage: Code(s): G93.1 - Anoxic brain damage, not elsewhere classified Status: Acute Assessment and Plan: Anoxic encephalopathy and now a large left-sided stroke. Myoclonic jerks being treated with Keppra and valproate. Hypothermia protocol completed. Antiepileptics initiated. Poor prognosis. Prognosis and further cardiac evaluation dependent upon neurologic status and likelihood for recovery. EEG planned for Friday. Subjective Date/time seen: 12/26/19 13:01 Interval history: Follow-up visit in 69-year-old lady with out of hospital cardiac arrest 12/25/2019 Visit: Remains in the ICU sedated on ventilator support, FiO2 35%. Hypothermia protocol completed. Low-grade fever. COVID negative. On a small dose of propofol for myoclonic jerks but otherwise the sedation has been discontinued. Sedation was lightened up but patient is not waking up, no spontaneous movement. Chest x-ray not yet read, appears to me similar to yesterday. Date of service: 12/26/2019 Not waking up. Permissive hypertension with systolic blood pressure generally 140-170 mmHg. Had fevers and now is on antibiotics. Head CT showed a large infarction in the territory of the left middle cerebral artery, started on mannitol. Echo results: EF 45-50%, diastolic dysfunction, no significant valve disease. Telemetry shows NSR. Review of Systems Review of Systems: Narrative: Review of systems obtained from the patient's nurse, [facility] and EMR as the patient is unresponsive, intubated. ROS unobtainable: Yes unobtainable due to medical condition and unobtainable due to mental status Constitutional: Constitutional: Reports no additional constitutional complaints Respiratory: Comments: Remains on the ventilator Gastrointestinal: Comments: NG tube, no obvious bleeding Genitourinary: Comments: Stratton catheter Neurologic: Reports as per HPI Psychiatric: Psychiatric: Reports as per HPI Exam Narrative: Exam Narrative: Unresponsive older lady, NG tube, ET tube. Const: General: c
--- NOTE | 2019-12-26 15:10 | PM.IMPN ---
Progress Note: A&P Assessment and Plan (1) Cardiac arrest: Code(s): I46.9 - Cardiac arrest, cause unspecified Status: Acute Assessment and Plan: Patient was reportedly in asystole on EMS arrival, with return of spontaneous circulation after 2 rounds of CPR/epinephrine. Precipitating etiology not clear. Differential includes possible cardiac event (EKG demonstrates left bundle branch block with troponin elevation), cardiac dysrhythmia, respiratory event (diffuse bilateral pulmonary infiltrates on EKG, edema versus pneumonia). Cardiology consulted due to presence of left bundle branch block and elevated troponin. Echocardiogram today EF 45-50%. 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 No hemorrhagic conversion Pt started on Mannitol (2) Acute respiratory failure: Code(s): J96.00 - Acute respiratory failure, unspecified whether with hypoxia or hypercapnia Status: Acute Assessment and Plan: Empiric ceftriaxone and azithromycin for possible pneumonia initially but cxr clear today and negative cultures so off iv abx SARS-CoV-2 PCR specimen has been obtained and is negative Currently intubated and sedated in icu (3) Bilateral pulmonary infiltrates on chest x-ray: Code(s): R91.8 - Other nonspecific abnormal finding of lung field Status: Acute Assessment and Plan: Differential diagnosis includes pulmonary edema, pneumonia. (4) Anoxic brain damage: Code(s): G93.1 - Anoxic brain damage, not elsewhere classified Status: Acute Assessment and Plan: CT shows- Infarction involving large portion of the left MCA, probably about 3 days old given the amount of cytotoxic edema within this, causing sulcal effacement, small amount of uncal herniation, but no midline shift, and the lateral ventricles appear symmetric. No hemorrhagic conversion Pt started on Mannitol ongoing myoclonic jerks poor mental status (5) Myoclonic jerking: Code(s): G25.3 - Myoclonus Status: Acute Assessment and Plan: CT shows- Infarction involving large portion of the left MCA, probably about 3 days old given the amount of cytotoxic edema within this, causing sulcal effacement, small amount of uncal herniation, but no midline shift, and the lateral ventricles appear symmetric. No hemorrhagic conversion Pt started on Mannitol ongoing myoclonic jerks poor mental status Subjective Date/time seen: 12/26/19 15:10 Interval history: 69-year-old white female admitted after cardiac arrest and code. Currently mechanically ventilated, cooled and warm. Discussed case with icu attending, may be difficult to extubate pt. Review of Systems Review of Systems: ROS unobtainable: Yes unobtainable due to endotracheal tube Exam Narrative: Exam Narrative: Temp Pulse Resp BP Pulse Ox 38.2 C H 104 H 24 H 154/58 H 97 12/25/19 12:00 12/25/19 14:12/25/19 14:12/25/19 14:12/25/19 14:00 Temp Pulse Resp BP Pulse Ox 37.7 C H 98 24 H 188/74 H 97 12/26/19 14:00 12/26/19 14:26 12/26/19 14:26 12/26/19 14:00 12/26/19 14:26 Pt is intubated and sedated in icu Objective Data Vital Signs Vital Signs: Vital Signs -
--- NOTE | 2019-12-26 16:34 | WPDINFPN2 ---
Progress Note: A&P Additional Plan Patient was seen and consult dictated. Thank you. Subjective Date/time seen: 12/26/19 16:34 Objective Data Vital Signs Vital Signs: Vital Signs - 24 hr 12/25/19 17:10 12/25/19 17:58 12/25/19 17:59 Temperature 37.9 C H Pulse Rate 92 94 94 Respiratory Rate 24 H Blood Pressure 186/68 H Pulse Oximetry 99 99 12/25/19 20:00 12/25/19 20:02 12/25/19 20:09 Temperature 38.0 C H Pulse Rate 101 H 97 99 Respiratory Rate 24 H 24 H 24 H Blood Pressure 157/60 H Pulse Oximetry 97 12/25/19 21:00 12/25/19 21:16 12/25/19 22:00 Temperature Pulse Rate 118 H 108 H Respiratory Rate 24 H Blood Pressure 150/53 H 156/55 H Pulse Oximetry 95 12/25/19 23:05 12/26/19 00:00 12/26/19 00:54 Temperature 37.9 C H Pulse Rate 101 H 99 Respiratory Rate 26 H Blood Pressure 152/56 H 176/64 H Pulse Oximetry 97 98 12/26/19 02:00 12/26/19 02:26 12/26/19 02:32 Temperature Pulse Rate 104 H 104 H 100 Respiratory Rate 24 H 24 H Blood Pressure 142/54 H Pulse Oximetry 97 97 12/26/19 04:00 12/26/19 04:42 12/26/19 05:05 Temperature 38.2 C H Pulse Rate 104 H 104 H Respiratory Rate 24 H Blood Pressure 170/60 H 151/56 H Pulse Oximetry 97 97 12/26/19 05:52 12/26/19 05:53 12/26/19 08:00 Temperature 38.2 C H Pulse Rate 96 100 98 Respiratory Rate 24 H 24 H Blood Pressure 153/56 H 187/65 H Pulse Oximetry 98 97 12/26/19 08:08 12/26/19 08:18 12/26/19 08:22 Temperature 38.1 C H Pulse Rate 104 H 100 Respiratory Rate 24 H 24 H Blood Pressure Pulse Oximetry 98 12/26/19 08:23 12/26/19 09:53 12/26/19 10:00 Temperature 37.7 C H Pulse Rate 95 111 H Respiratory Rate 24 H Blood Pressure 165/58 H Pulse Oximetry 97 12/26/19 11:50 12/26/19 12:00 12/26/19 14:00 Temperature 37.7 C H 37.7 C H Pulse Rate 96 97 102 H Respiratory Rate 24 H 28 H Blood Pressure 158/53 H 188/74 H Pulse Oximetry 98 98 97 12/26/19 14:26 12/26/19 16:00 Temperature 37.7 C H Pulse Rate 97 105 H Respiratory Rate 24 H 26 H Blood Pressure 172/63 H Pulse Oximetry 97 97 Intake/Output Intake/Output: Intake & Output 12/23/19 12/24/19 12/25/19 12/26/19 23:59 23:59 23:59 23:59 Intake Total 2324 2253 2181.6667 2217 Output Total 1400 700 625 975 Balance 929 1553 1556.6667 1242 Meds/Results Medications: Active Medications Generic Name Dose Route Start Last Admin Trade Name Freq PRN Reason Stop Dose Admin Acetaminophen 650 mg 12/25/19 10:07 12/26/19 08:22 Tylenol Tablet FEED TUBE 650 mg Q4H PRN Administration Mild Pain (1-3) or Fever Albuterol 5 mg 12/22/19 14:00 12/26/19 14:26 Albuterol Sulf Neb 2.5mg/0.5ml INHALATION 5 mg Q6HRT LISSETTE Administration Aspirin 325 mg 12/26/19 08:00 12/26/19 08:22 Aspirin FEED TUBE 325 mg DAILY@0800 LISSETTE Administration Dextrose 12.5 gm 12/22/19 13:06 12/25/19 23:49 Dextrose 50% Syringe IV PUSH 12.5 gm PRN PRN Administration Hypoglycemia Protocol Enoxaparin Sodium 40 mg 12/23/19 09:00 12/26/19 08:23 Lovenox SUB-Q 40 mg DAILY LISSETTE Administration Glucagon 1 mg 12/22/19 13:06 Glucagon For Inj IM PRN PRN Hypoglycemia Protocol Glucose 15 gm 12/22/19 13:06 Glutose 15 PO PRN PRN Hypoglycemia Protocol Hydralazine HCl 10 mg 12/24/19 13:33 12/26/19 08:23 Apresoline Hcl Inj IV PUSH 10 mg Q4H PRN Administration Blood Pressure - High Dextrose 1,000 mls @ 100 mls/hr 12/22/19 13:06 Dextrose 5% 1,000 Ml IVPB PRN PRN Hypoglycemia Protocol Valproate Sodium 500 mg/ 105 mls @ 100 mls/hr 12/23/19 18:00 12/26/19 12:51 Dextrose IVPB 100 mls/hr Q6HR LISSETTE Administration Propofol 100 mls @ 2.493 mls/hr 12/25/19 18:00 12/26/19 10:38 Diprivan IV CONT Infused .Q40H7M LISSETTE Titration Protocol 5 MCG/KG/MIN Cefepime HCl 2 gm in 50 mls @ 100 mls/hr
[2019-12-26 17:19] LABS: Glucose Point of Care 89 (65-105)
[2019-12-26 17:27] LABS: Add Urine Microscopic? YES; Appearance Urine Cloudy (Clear); Bacteria Urine Trace /hpf; Bilirubin Urine Negative (Negative); Blood Urine 1+ (Negative); Color Urine Yellow (Yellow); Glucose Urine UA Negative (Negative); Ketones Urine Trace mg/dL (Negative); Leukocyte Esterase Ur Negative LEU/UL (Negative); Nitrate Urine Negative (Negative); Protein Urine 1+ mg/dL (Negative); Squamous Epithelial Cell Urine Moderate /hpf (Few); Urobilinogen Urine Negative mg/dL (<2.0)
[2019-12-26 17:41] LABS: Specific Grav Ur 1.042 (1.001-1.035)
--- NOTE | 2019-12-26 21:50 | CONS_ITS ---
DATE OF CONSULTATION: 12/26/2019 REQUESTING PHYSICIAN: Mireille Dawkins M.D. REASON FOR CONSULTATION: Febrile illness, status post cardiopulmonary arrest, pulmonary embolism. HISTORY OF PRESENT ILLNESS: This is a 69-year-old female who was admitted on 12/22/2019 after she was brought in by EMS from home post cardiac arrest. The patient is currently intubated and sedated. I was requested to see her due to recurrent fever. She is unresponsive on a ventilator. History is obtained from the chart. PAST MEDICAL HISTORY: significant forhepatic steatosis or cerebrovascular accident without related defect. PAST SURGICAL HISTORY: None. ALLERGIES: NO KNOWN DRUG ALLERGIES. FAMILY HISTORY: At this point, unknown. The patient is intubated and unable to give history. REVIEW OF SYSTEMS: Unable to obtain since patient is intubated and sedated. SOCIAL HISTORY: Nonsmoker. There is history of alcohol use, but no substance abuse. MEDICATION: In the hospital, she is currently on: 1. Propofol. 2. Valproic acid. 3. Cefepime and vancomycin started today. 4. Pantoprazole. 5. Metoprolol. 6. Aspirin. 7. Hydralazine. 8. Tylenol. PHYSICAL EXAMINATION: GENERAL: Patient is intubated and sedated. VITAL SIGNS: Temperature currently 37.7, as high as 38.2, pulse rate of 105, respiratory rate of 26, blood pressure of 172/63, saturating 97% on the ventilator. HEAD AND NECK: Pupils are sluggish. ET tube in place. Neck is supple. No nuchal rigidity. CARDIOVASCULAR SYSTEM: Positive S1, positive S2. No S3, S4. No murmur. Tachycardic. LUNGS: Scattered crackles at the bases bilaterally. ABDOMINAL EXAM: Positive bowel sounds. Nontender. No organomegaly. No mass. EXTREMITIES: No edema. JOINT EXAMINATION: No effusion. SKIN EXAMINATION: There is no rash. No petechia. No hemorrhages. No purpura. Right lower extremity early signs of digital cyanosis with cool to touch. NEUROLOGICAL: She is intubated and sedated. LABORATORY EXAMINATION: White count is 11,000, hemoglobin of 11, hematocrit 34, platelet of 123. Previous white count of 13,000. Sodium is 132, potassium of 3.2, chloride 107, bicarb of 21, BUN 19, creatinine of 0.6, hemoglobin A1c of 5.3, AST of 59, ALT of 28, alkaline phosphatase of 63. Urinalysis on the 6th, nitrite is negative, leukocyte esterase negative, WBC of 3. Drug screen was positive for benzodiazepine. Hepatitis profile was negative. [id number] RNA, PCR was negative for nasopharyngeal swab. Blood cultures x2 sets from the 9th are so far negative. CT of the chest, extensive dependent prominent lung disease, given appearance pattern would favor severe pulmonary edema over pneumonia, small bilateral effusion, cardiomegaly. CT scan of the head, no acute intracranial abnormality. ASSESSMENT AND PLAN: 1. Febrile illness. No clear source at this point. Differential diagnosis includes respiratory tract infection versus blood stream infection versus soft tissue infection. At this point, blood cultures x2 sets from the 9th are negative. We will repeat blood cultures, if persistent fever. The patient has been empirically started on cefepime and vancomycin, day #1, we will continue. Chest CAT scan does show some interstitial infiltrate, more consistent with pulmonary edema rather than pneumonia. We will request tracheal aspirate for Gram stain, culture and sensitivity. Other potential source of noninfectious fever includes central fever, post cardiac arrest. We will continue to workup for infectious etiology at this point. Follow up on blood culture. Tracheal aspirate culture and urinalysis with reflex culture if need be. Meanwhile, continue cefepime and vancomycin. 2. Cardiac arrest secondary to unspecified reason
[2019-12-26 23:50] LABS: Glucose Point of Care 132 (65-105)
[2019-12-27] VITALS (30 sets, daily range): BP systolic 134–188; BP diastolic 47–99; PULSE 86–126; RESP 22–28; TEMP 37.7–38.8; O2SAT 96–99
[2019-12-27] MEDS: PROPOFOL IV EMULSION 100 ML 2.1 MG IV CONT (01:08)
--- NOTE | 2019-12-27 01:32 | PC.NURSE ---
At about 2200 pt bit down on tube cause 3 teeth to dislodge almost completely. Dr. Mas removed the 2 that were barely still attached. At about 0050 pt began seizure like activity. I caled Dr. Karimi he had me restart propofol and increase keppra to tid.
[2019-12-27] MEDS: ALBUTEROL SULFATE NEB 2.5 MG/0.5 ML INH 5 MG INHALATION ×4 (02:04→20:58)
[2019-12-27 04:07] LABS: Base Excess ABG -2.3 mEq/l (+/-2.0); Carboxyhemoglobin 0.5 % THb (0-2.0); Fractional Inspired Oxygen 35 %; HCO3 ABG 19.5 mEq/l (22.0-26.0); Methemoglobin ABG 0.3 %THb (0-1.5); Oxygen Content ABG 16.5 %vol (16.0-22.0); Oxygen Saturation ABG 96.2 % (95.0-100.0); Oxyhemoglobin 95.2 % THb (90.0-100.0); PCO2 ABG 25.4 mmHg (35.0-45.0); PO2 FiO2 Ratio Arterial Blood 2.11 %; Total Hemoglobin 12.3 g/dL (12.0-18.0); pH ABG 7.502 (7.350-7.450)
[2019-12-27 04:08] LABS: Site Drawn ARTLINE
[2019-12-27 04:09] LABS: Arterial Blood Gas PEEP 5 cmH2O; Arterial Blood Gas Tidal Volume 350 ml; Arterial Blood Gas Vent Mode CMV; Arterial Blood Gas Ventilator rate 24 /MIN; Device VENTILATOR
[2019-12-27] MEDS: ACETAMINOPHEN 325 MG TABLET 650 MG FEED TUBE ×2 (04:18→18:51)
[2019-12-27 04:26] LABS: Hematocrit 35.7 % (37.0-47.0); Hemoglobin 11.8 g/dL (12.0-15.0); Mean Corpuscular HGB Conc 33.1 g/dl (32-36); Mean Corpuscular Volume 93.7 fl (80-100); Mean Platelet Volume 10.3 fl (7.4-10.4); Platelet Count Result 146 k/mm3 (150-375); Red Blood Count 3.81 M/mm3 (4.2-5.4); Red Cell Distribution Width 14.6 % (11.5-14.5); White Blood Count 14.6 K/mm3 (4.5-10.0)
[2019-12-27 04:40] LABS: Lactic Acid 1.2 mmol/L (0.7-2.1)
[2019-12-27 04:43] LABS: Alanine Aminotransferase 29 U/L (4-35); Albumin Level 2.8 g/dL (3.5-5.1); Alkaline Phosphatase 111 U/L (38-126); Aspartate Amino Transferase 56 U/L (14-36); Bilirubin,Total 0.7 mg/dL (0.2-1.3); Blood Urea Nitrogen 23 mg/dL (7-17); Calcium 8.3 mg/dL (8.4-10.2); Carbon Dioxide 26 mmol/L (22-30); Chloride 106 mmol/L (98-107); Estimated CRCL calculation 52 ml/min; Estimated Glomerular Filt Rate > 60; Glucose 149 mg/dL (65-105); Magnesium 2.5 mg/dL (1.6-2.3); Phosphorus 2.5 mg/dL (2.5-4.5); Potassium 3.9 mmol/L (3.4-5.0); Sodium 136 mmol/L (137-145)
[2019-12-27] MEDS: levETIRAcetam 1000MG/NACL100ML 1,000 MG/100 ML BAG 400 MG IVPB ×3 (05:56→20:00)
[2019-12-27] MEDS: VALPROIC ACID INJ 500 MG in DEXTROSE 5% 100 ML 100 MG IVPB ×2 (05:56→13:08)
[2019-12-27] MEDS: ENOXAPARIN 40 MG/0.4 ML SYRINGE SUB-Q (08:52)
[2019-12-27] MEDS: ASPIRIN 325 MG TABLET FEED TUBE (08:52)
[2019-12-27] MEDS: METOPROLOL TARTRATE 12.5 MG TABLET PO ×2 (08:52→20:00)
[2019-12-27] MEDS: PANTOPRAZOLE SODIUM IV 40 MG VIAL IV PUSH (08:53)
[2019-12-27] MEDS: LORAZEPAM INJ 2 MG/ML VIAL IV PUSH ×2 (08:59→18:57)
--- NOTE | 2019-12-27 10:09 | PM.PNCARD ---
Progress Note: A&P Assessment and Plan (1) Cardiac arrest: Code(s): I46.9 - Cardiac arrest, cause unspecified Status: Acute Assessment and Plan: Asystolic arrest, successful resuscitation. Etiology not clear. No sustained arrhythmias seen here. One 4 beat VT this morining. Potassium and magnesium within normal limits. She does have mildly decreased LV function and a LBBB. Has elevated troponin up to 1.8 so arrest could be 2nd myocardial ischemia, but no h/o CP and this level of troponin rise may simply be the result of the arrest. Negative for pulmonary embolism on CT angiogram of the chest. (2) Elevated troponin: Code(s): R79.89 - Other specified abnormal findings of blood chemistry Status: Acute Assessment and Plan: Troponin peaked at 1.83 in setting of asystolic arrest, ACLS resuscitation, hypothermia protocol. Unknown coronary disease status. Left bundle-branch block duration unknown. Mild left ventricular dysfunction. Pumonary vascular congestion noted on admission has resolved. Is not perfusing extremities well. Aspirin 325 mg daily DVT prophylaxis. (3) LBBB (left bundle branch block): Code(s): I44.7 - Left bundle-branch block, unspecified Status: Acute Assessment and Plan: Chronicity unknown. Ischemic workup depending on her neurologic status/recovery period (4) Acute respiratory failure: Code(s): J96.00 - Acute respiratory failure, unspecified whether with hypoxia or hypercapnia Status: Acute Assessment and Plan: Remains intubated and sedated on mechanical ventilatory support. Managed by critical care. IV antibiotics, bronchodilator therapy and ventilatory support. Does not appear to be significantly volume overloaded clinically at this time. Follow chest x-ray daily. (5) Anoxic brain damage: Code(s): G93.1 - Anoxic brain damage, not elsewhere classified Status: Acute Assessment and Plan: Anoxic encephalopathy and now a large left-sided stroke. Myoclonic jerks being treated with Keppra and valproate. Hypothermia protocol completed. Antiepileptics initiated. Poor prognosis. Prognosis and further cardiac evaluation dependent upon neurologic status and likelihood for recovery. EEG planned for today. Additional Plan Plan discussed with Dr Alonzo [id number] 12/27/2019 Subjective Date/time seen: 12/27/19 10:09 Interval history: Follow-up for:out of hospital cardiac arrest Date of service:12/27/2019 Subjective: Remains sedated on ventilator Review of Systems Review of Systems: ROS unobtainable: Yes unobtainable due to endotracheal tube and unobtainable due to mental status Exam Narrative: Exam Narrative: Unresponsive, NG tube, ET tube. Const: General: other (sedated) HENMT: Head: normocephalic and atraumatic General nose exam: no epistaxis Mouth: Yes dry mucous membranes Eyes: Sclera: abnormal sclerae Pupils: Equal, round and reactive pupils present Neck: Neck: no JVD Other: Normal carotid pulses no bruits Resp: Effort & Inspection: other (Intubated on ventilator support) Auscultation: clear to auscultation bilaterally Other: Intubated Cardio: Rate: regular rate Rhythm: regular rhythm Heart sounds: no murmurs Other: S2 is paradoxically split GI: Inspection: non-distended Auscultation: Hypoactive bowel sounds present Other: Soft and nontender. Tube feeding Urinary Catheter: Urinary Catheter: patent and draining and urine dark Skin: General skin exam: normal color and no rashes or lesions noted Neuro: Cranial nerves: Yes Equal, round and reactive pupils present Cognition (Neuro): abnormal cognition (Unresponsive, no spontaneous movement) Other: Sedated. Jerking noted when stimulated Extrem: General: normal to inspection and pedal edema
--- NOTE | 2019-12-27 10:55 | PCDIET ---
ICU Rounding Note: Patient with fair tube feeding tolerance. Receiving Vital 1.2 at 35mL/hr with Pro-Stat flush BID. Tube feedings held for 325mL residual over the weekend. Other residuals 280mL and below. Recommend continuing present tube feeding which provides 1345kcal and 90g protein with current Propofol dose (assuming tube feedings infusing over 22 hours/day). If residuals remain >250mL, may want to consider addition of prokinetic agent and/or advancing tube into small bowel. Last recorded weight is 55.8kg. Recommend reweighing patient to ensure accurate. Bowel Motility: BM x 1 on 12/26/19. Labs Reviewed: Glu (149), Na (136), Alb (2.8) Meds Noted: Albuterol, Cefepime, Protonix, Propofol (current rate of 8.4mL/hr provides 221kcal over 24 hour period), Novolog, Mannitol, Vancomycin Additional Notes: Corrected calcium WNL. Buttocks macerated. Plan for EEG today. Following daily in ICU rounds. Assessing/reassessing every Friday/Friday.
[2019-12-27 11:07] LABS: Alanine Aminotransferase 25 U/L (4-35); Albumin Level 2.5 g/dL (3.5-5.1); Alkaline Phosphatase 102 U/L (38-126); Aspartate Amino Transferase 49 U/L (14-36); Bilirubin,Total 0.5 mg/dL (0.2-1.3); Blood Urea Nitrogen 23 mg/dL (7-17); Calcium 7.9 mg/dL (8.4-10.2); Carbon Dioxide 24 mmol/L (22-30); Chloride 106 mmol/L (98-107); Estimated CRCL calculation 44 ml/min; Estimated Glomerular Filt Rate > 60; Glucose 151 mg/dL (65-105); Potassium 3.6 mmol/L (3.4-5.0); Sodium 133 mmol/L (137-145)
[2019-12-27 11:51] LABS: Glucose Point of Care 132 (65-105)
--- NOTE | 2019-12-27 12:00 | NEURO_ITS ---
TEST: ELECTROENCEPHALOGRAM DIAGNOSIS: MYOCLONIC JERKS PATIENT NUMBER: [id number] EEG NUMBER: [id number] RECORDING DATE: 12/27/19 CLINICAL HISTORY: Patient was found at home unresponsive; was brought into hospital where she received CPR but remains unresponsive. CONDITION OF RECORDING: Comatose EEG DESCRIPTION: The whole record consists of diffused paroxysmal burst of medium to high voltage sharp and slow wave dysrhythmic activity lasted from 5-6 seconds followed by periods of no cortical activity lasting 2-8 seconds. Paroxysmal. Nonfocal. Nonlateralizing. IMPRESSION: Severely abnormal record due to burst suppression pattern compatible with severe hypoxic anoxic encephalopathy. Clinical correlation recommended. [facility]
--- NOTE | 2019-12-27 13:58 | PC.NURSE ---
This patient, Cris Phan, was transferred to [facility] on 12/27/19 at 1345. Personal belongings sent with patient. Belongings list checked and signed with receiving [ ]. Report given to EVELYN Delgado. Appropriate documentation sent with patient.
--- NOTE | 2019-12-27 14:09 | WPDINTPN ---
Progress Note: A&P Assessment and Plan (1) Cardiac arrest: Code(s): I46.9 - Cardiac arrest, cause unspecified Status: Acute Assessment and Plan: cardiac arrest, unknown etiology could be related to cardiac arrhythmia, respiratory event, coronary artery disease, patient has not seen a doctor in a long time and does not have any known medical history - myoclonic jerks observed - poor prognostic sign post cardiac arrest, started on Keppra And valproic acid. She has not been noticed to have any further myoclonic chairs over the last 48 hours or so. Will decrease the dose of Keppra to 1 g twice a day from 3 times a day. Continue on folic acid. EEG will be performed in the a.m.. - CT scan of the head on 12/25/2019 showed extensive infarction in the left MCA territory. - STATUS POST HYPOTHERMIA PROTOCOL, PATIENT HAS BEEN REWARMED. Target temperature which achieved almost 2-3 days ago. - appreciate cardiology evaluation recommendations - patient with left bundle-branch block of unkown duration. Troponins trending up from 0.102 to 1.83. Cardiology evaluation recommendations appreciated. She would need to go to cardiac research laboratory specialist once she is stable and her neurological status is adequate. - blood and urine cultures are negative. initially was on antibiotics but that has been discontinued. She still consistently febrile. (2) Acute respiratory failure: Code(s): J96.00 - Acute respiratory failure, unspecified whether with hypoxia or hypercapnia Status: Acute Assessment and Plan: acute respiratory failure likely related to cardiac arrest, pulmonary edema, pneumonia, CHF - patient intubated on 12/22/2019 - on CMV mode of ventilation, peep of 5, 35% FiO2. She is not appropriate for SBT trial because of her mental status. - chest CT and chest x-ray reviewed, no PE, ABGs reviewed, ventilator adjusted. She is not a candidate for SBT trial Because of mental status. - patient started on ceftriaxone and azithromycin. But now antibiotics have been stopped as cultures remain negative. She still have fever spike. - patient on propofol and Precedex, She requires propofol intermittently for myclonic jerks. (3) Suspected COVID-19 virus infection: Code(s): R68.89 - Other general symptoms and signs Status: Acute Assessment and Plan: SARS-CoV-2 PCR negative Currently not on any precautions. (4) Bilateral pulmonary infiltrates on chest x-ray: Code(s): R91.8 - Other nonspecific abnormal finding of lung field Status: Acute Assessment and Plan: Initial chest x-ray showed bilateral pulmonary infiltrates with differential possible pneumonia vs suspected COVID-19 pneumonia. - Initially she was on ceftriaxone and azithromycin. Antibiotics have been stopped 2 days ago cultures remain negative. - blood and sputum cultures are negative so far, patient was spiking fevers, so was started on cefepime and vancomycin Chest x-ray showing bilateral airspace disease specially in the bilateral lung bases. - she could also have central fevers due to brain injury - appreciate infectious disease following, agrees with cefepime and vancomycin for the. (5) Pulmonary edema: Code(s): J81.1 - Chronic pulmonary edema Status: Acute Assessment and Plan: resolved: pulmonary edema noted on the chest x-ray and CT scan - unknown history of congestive heart failure, - BNP 1160 - Echo Has been reported to have ejection fraction of 45-50%. Grade 1 diastolic dysfunction. Continue metoprolol. she has passed the time frame where she needed to have permissive hypertension. Can continue the metoprolol (6) Myoclonic jerking: Code(s): G25.3 - Myoclonus Status: Acute Assessment and Plan: No myoclonic jerks has been described with the last 48 hours or so. on Keppra 1 g q.8 hours. Continues to have seizure activity, discussed with Neurology,
[2019-12-27] MEDS: PROPOFOL IV EMULSION 100 ML 12.6 MG IV CONT ×2 (14:50→22:21)
--- NOTE | 2019-12-27 16:03 | WPDINFPN2 ---
Progress Note: A&P Assessment and Plan (1) Fever: Code(s): R50.9 - Fever, unspecified Status: Acute Assessment and Plan: 1. Fever, temps as above - aspiration pneumonitis? Less likely hypothalamic infarct 2. s/p CP arrest 3. Anoxic encephalopathy REC Cefepime and Vanc #2, continue at least another day while cultures incubate further. Do not anticipate prolonged empiric Rx. Subjective Date/time seen: 12/27/19 16:03 Interval history: no pressors, ventilated Exam Narrative: Exam Narrative: all temps range 37.7 - 38.2 core (Stratton probe) Neck: Neck: supple Resp: Effort & Inspection: normal respiratory effort Auscultation: clear to auscultation bilaterally Cardio: Rate: regular rate Rhythm: regular rhythm Heart sounds: no gallops and no murmurs GI: GI Palp: Yes Soft to palpation and No Tenderness to palpation present (GI) Urinary Catheter: Urinary Catheter: patent and draining and urine clear Skin: General skin exam: normal color and no rashes or lesions noted Objective Data Vital Signs Vital Signs: Vital Signs - 24 hr 12/26/19 17:35 12/26/19 17:42 12/26/19 17:45 Temperature 37.7 C H Pulse Rate 96 99 99 Respiratory Rate 24 H Blood Pressure 171/57 H Pulse Oximetry 96 97 12/26/19 19:56 12/26/19 20:00 12/26/19 20:02 Temperature 37.8 C H Pulse Rate 111 H 112 H 114 H Respiratory Rate 29 H 28 H Blood Pressure 187/63 H Pulse Oximetry 96 97 12/26/19 20:05 12/26/19 20:17 12/26/19 22:00 Temperature 38.0 C H Pulse Rate 116 H 115 H 101 H Respiratory Rate 30 H 24 H Blood Pressure 198/64 H Pulse Oximetry 97 12/26/19 23:10 12/27/19 00:00 12/27/19 01:22 Temperature 38.1 C H Pulse Rate 111 H 113 H 113 H Respiratory Rate 26 H Blood Pressure 186/61 H 177/61 H Pulse Oximetry 96 96 12/27/19 01:55 12/27/19 02:00 12/27/19 02:04 Temperature 37.7 C H Pulse Rate 117 H 118 H 117 H Respiratory Rate 26 H 28 H Blood Pressure 159/54 H Pulse Oximetry 96 96 12/27/19 02:11 12/27/19 04:00 12/27/19 04:52 Temperature 38.2 C H Pulse Rate 117 H 108 H 110 H Respiratory Rate 27 H 24 H Blood Pressure 156/53 H Pulse Oximetry 97 97 12/27/19 05:20 12/27/19 06:00 12/27/19 08:00 Temperature 37.9 C H 37.7 C H 37.7 C H Pulse Rate 109 H 107 H Respiratory Rate 27 H 25 H Blood Pressure 159/53 H 170/55 H Pulse Oximetry 96 97 12/27/19 08:38 12/27/19 08:48 12/27/19 08:52 Temperature Pulse Rate 110 H 126 H 108 H Respiratory Rate 28 H Blood Pressure Pulse Oximetry 97 12/27/19 09:00 12/27/19 10:00 12/27/19 11:32 Temperature Pulse Rate 122 H 96 102 H Respiratory Rate 28 H 22 H Blood Pressure 134/49 L Pulse Oximetry 97 98 12/27/19 12:00 12/27/19 14:00 Temperature 38.2 C H Pulse Rate 93 91 Respiratory Rate 22 H 22 H Blood Pressure 143/48 H 162/54 H Pulse Oximetry 97 97 Intake/Output Intake/Output: Intake & Output 12/24/19 12/25/19 12/26/19 12/27/19 23:59 23:59 23:59 23:59 Intake Total 2253 2181.6667 3517 1395 Output Total 788 315 8919 1250 Balance 1553 1556.6667 1092 145 Meds/Results Medications: Active Medications Generic Name Dose Route Start Last Admin Trade Name Freq PRN Reason Stop Dose Admin Acetaminophen 650 mg 12/25/19 10:07 12/27/19 04:18 Tylenol Tablet FEED TUBE 650 mg Q4H PRN Administration Mild Pain (1-3) or Fever Albuterol 5 mg 12/22/19 14:00 12/27/19 14:00 Albuterol Sulf Neb 2.5mg/0.5ml INHALATION 5 mg Q6HRT LISSETTE Administration Aspirin 325 mg 12/26/19 08:00 12/27/19 08:52 Aspirin FEED TUBE 325 mg DAILY@0800 LISSETTE Administration Dextrose 12.5 gm 12/22/19 13:06 12/25/19 23:49 Dextrose 50% Syringe IV PUSH 12.5 gm PRN PRN Administration Hypoglycemia Protocol Enoxaparin Sodium 40 mg 12/23/19 09:00 12/27/19 08:52 Lovenox SUB-Q 40 mg DAILY LISSETTE Administration Glucagon 1 mg 12/22/19 13:06 Glucagon For Inj IM PRN
--- NOTE | 2019-12-27 18:16 | P.PNIM_ITS ---
Progress Note: A&P Assessment and Plan (1) Cardiac arrest: Code(s): I46.9 - Cardiac arrest, cause unspecified Status: Acute Assessment and Plan: * Patient was reportedly in asystole on EMS arrival, with return of spontaneous circulation after 2 rounds of CPR/epinephrine. * Precipitating etiology not clear. Differential includes possible cardiac event (EKG demonstrates left bundle branch block with troponin elevation), cardiac dysrhythmia, respiratory event (diffuse bilateral pulmonary infiltrates on EKG, edema versus pneumonia). * Cardiology consulted due to presence of left bundle branch block and elevated troponin. * Echocardiogram today EF 45-50%. 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 No hemorrhagic conversion * Pt started on Mannitol 12/27/19 18:16 Patient is 69-year-old female status post cardiac arrest resulting in anoxic brain injury with right-sided weakness and jerking movement patient started on Keppra and since then jerking his stop, patient on vent, suspect aspiration pneumonia seen by Dr. marr. 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 (2) Acute respiratory failure: Code(s): J96.00 - Acute respiratory failure, unspecified whether with hypoxia or hypercapnia Status: Acute Assessment and Plan: * Empiric ceftriaxone and azithromycin for possible pneumonia initially but cxr clear today and negative cultures so off iv abx * SARS-CoV-2 PCR specimen has been obtained and is negative * Currently intubated and sedated in icu (3) Bilateral pulmonary infiltrates on chest x-ray: Code(s): R91.8 - Other nonspecific abnormal finding of lung field Status: Acute Assessment and Plan: * Differential diagnosis includes pulmonary edema, pneumonia. (4) Anoxic brain damage: Code(s): G93.1 - Anoxic brain damage, not elsewhere classified Status: Acute Assessment and Plan: CT shows- Infarction involving large portion of the left MCA, probably about 3 d ays old given the amount of cytotoxic edema within this, causing sulcal effacement, small amount of uncal herniation, but no midline shift, and the lateral ventricles appear symmetric. No hemorrhagic conversion * Pt started on Mannitol * ongoing myoclonic jerks * poor mental status (5) Myoclonic jerking: Code(s): G25.3 - Myoclonus Status: Acute Assessment and Plan: CT shows- Infarction involving large portion of the left MCA, probably about 3 days old given the amount of cytotoxic edema within this, causing sulcal effacement, small amount of uncal herniation, but no midline shift, and the lateral ventricles appear symmetric. No hemorrhagic conversion * Pt started on Mannitol * ongoing myoclonic jerks * poor mental status Subjective Date/time seen: 12/27/19 18:16 Patient is 69-year-old female status post cardiac arrest resulting in anoxic brain injury with right-sided weakness and jerking movement patient started on Keppra and since then jerking his stop, patient on vent, suspect aspiration pneumonia seen by Dr. marr. 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
--- NOTE | 2019-12-27 18:16 | PM.IMPN ---
Progress Note: A&P Assessment and Plan (1) Cardiac arrest: Code(s): I46.9 - Cardiac arrest, cause unspecified Status: Acute Assessment and Plan: Patient was reportedly in asystole on EMS arrival, with return of spontaneous circulation after 2 rounds of CPR/epinephrine. Precipitating etiology not clear. Differential includes possible cardiac event (EKG demonstrates left bundle branch block with troponin elevation), cardiac dysrhythmia, respiratory event (diffuse bilateral pulmonary infiltrates on EKG, edema versus pneumonia). Cardiology consulted due to presence of left bundle branch block and elevated troponin. Echocardiogram today EF 45-50%. 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 No hemorrhagic conversion Pt started on Mannitol 12/27/19 18:16 Patient is 69-year-old female status post cardiac arrest resulting in anoxic brain injury with right-sided weakness and jerking movement patient started on Keppra and since then jerking his stop, patient on vent, suspect aspiration pneumonia seen by Dr. marr. 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[employer] consultant (2) Acute respiratory failure: Code(s): J96.00 - Acute respiratory failure, unspecified whether with hypoxia or hypercapnia Status: Acute Assessment and Plan: Empiric ceftriaxone and azithromycin for possible pneumonia initially but cxr clear today and negative cultures so off iv abx SARS-CoV-2 PCR specimen has been obtained and is negative Currently intubated and sedated in icu (3) Bilateral pulmonary infiltrates on chest x-ray: Code(s): R91.8 - Other nonspecific abnormal finding of lung field Status: Acute Assessment and Plan: Differential diagnosis includes pulmonary edema, pneumonia. (4) Anoxic brain damage: Code(s): G93.1 - Anoxic brain damage, not elsewhere classified Status: Acute Assessment and Plan: CT shows- Infarction involving large portion of the left MCA, probably about 3 days old given the amount of cytotoxic edema within this, causing sulcal effacement, small amount of uncal herniation, but no midline shift, and the lateral ventricles appear symmetric. No hemorrhagic conversion Pt started on Mannitol ongoing myoclonic jerks poor mental status (5) Myoclonic jerking: Code(s): G25.3 - Myoclonus Status: Acute Assessment and Plan: CT shows- Infarction involving large portion of the left MCA, probably about 3 days old given the amount of cytotoxic edema within this, causing sulcal effacement, small amount of uncal herniation, but no midline shift, and the lateral ventricles appear symmetric. No hemorrhagic conversion Pt started on Mannitol ongoing myoclonic jerks poor mental status Subjective Date/time seen: 12/27/19 18:16 Patient is 69-year-old female status post cardiac arrest resulting in anoxic brain injury with right-sided weakness and jerking movement patient started on Keppra and since then jerking his stop, patient on vent, suspect aspiration pneumonia seen by Dr. marr. 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[employer] consultant Review of Systems Review of Systems: ROS unobtainable: Yes unobtainable due to endotracheal tube Exam Narrative: Exam Narrative: On vent Const: General: no acute distress HENMT: Other: ET tube in place Eyes: Sclera: sclerae normal Neck: Neck: supple Resp: Other: On vent bilateral harsh sound Cardio: Rate: regular rate Rhythm: regular rhythm GI: Auscultation: normal rika
[2019-12-27 19:05] LABS: Glucose Point of Care 98 (65-105)
[2019-12-27 19:05] LABS: Glucose Point of Care 68 (65-105)
[2019-12-28] VITALS (15 sets, daily range): BP systolic 148–174; BP diastolic 52–60; PULSE 85–109; RESP 12–22; TEMP 37.9–38.4; O2SAT 95–99
[2019-12-28 00:16] LABS: Glucose Point of Care 88 (65-105)
[2019-12-28] MEDS: ALBUTEROL SULFATE NEB 2.5 MG/0.5 ML INH 5 MG INHALATION ×2 (02:03→09:00)
[2019-12-28 04:44] LABS: Basophils Percent Auto 0.1 % (0.2-1.2); Eosinophils Absolute Auto 0.1 K/mm3 (0-0.3); Eosinophils Percent Auto 0.6 % (0-4.4); Hemoglobin 10.3 g/dL (12.0-15.0); Immature Granulocyte Absolute 1.03 K/mm3 (0.00-0.031); Immature Granulocyte Percent A 8.4 % (0-0.5); Lymphocytes Absolute Auto 0.73 K/mm3 (0.9-3.2); Lymphocytes Percent Auto 5.9 % (18.3-44.2); Mean Corpuscular HGB Conc 32.2 g/dl (32-36); Mean Corpuscular Hemoglobin 30.6 pg (26-34); Mean Platelet Volume 10.7 fl (7.4-10.4); Monocytes Absolute Auto 1.1 K/mm3 (0.1-0.6); Monocytes Percent Auto 9.3 % (2.6-8.5); Neutrophils Absolute Auto 9.3 K/mm3 (1.3-6.7); Neutrophils Percent Auto 75.7 % (45.5-73.1); Platelet Count Result 131 k/mm3 (150-375); Red Blood Count 3.37 M/mm3 (4.2-5.4); Red Cell Distribution Width 14.8 % (11.5-14.5); White Blood Count 12.3 K/mm3 (4.5-10.0)
[2019-12-28] MEDS: levETIRAcetam 1000MG/NACL100ML 1,000 MG/100 ML BAG 400 MG IVPB (04:46)
[2019-12-28] MEDS: PROPOFOL IV EMULSION 100 ML 12.6 MG IV CONT (04:48)
[2019-12-28 04:57] LABS: Alanine Aminotransferase 25 U/L (4-35); Albumin Level 2.7 g/dL (3.5-5.1); Alkaline Phosphatase 130 U/L (38-126); Aspartate Amino Transferase 51 U/L (14-36); Bilirubin,Total 0.5 mg/dL (0.2-1.3); Blood Urea Nitrogen 25 mg/dL (7-17); Carbon Dioxide 24 mmol/L (22-30); Chloride 105 mmol/L (98-107); Estimated CRCL calculation 49 ml/min; Estimated Glomerular Filt Rate > 60; Glucose 116 mg/dL (65-105); Magnesium 2.6 mg/dL (1.6-2.3); Phosphorus 2.6 mg/dL (2.5-4.5); Potassium 3.8 mmol/L (3.4-5.0); Sodium 133 mmol/L (137-145)
[2019-12-28] MEDS: METOPROLOL TARTRATE 12.5 MG TABLET PO (08:10)
[2019-12-28] MEDS: ENOXAPARIN 40 MG/0.4 ML SYRINGE SUB-Q (08:10)
[2019-12-28] MEDS: ASPIRIN 325 MG TABLET FEED TUBE (08:10)
[2019-12-28] MEDS: PANTOPRAZOLE SODIUM IV 40 MG VIAL IV PUSH (08:10)
--- NOTE | 2019-12-28 09:38 | WPDINTPN ---
Progress Note: A&P Assessment and Plan (1) Cardiac arrest: Code(s): I46.9 - Cardiac arrest, cause unspecified Status: Acute Assessment and Plan: cardiac arrest, unknown etiology could be related to cardiac arrhythmia, respiratory event, coronary artery disease, patient has not seen a doctor in a long time and does not have any known medical history - myoclonic jerks observed - poor prognostic sign post cardiac arrest, started on Keppra And valproic acid. She has not been noticed to have any further myoclonic chairs over the last 48 hours or so. Will decrease the dose of Keppra to 1 g twice a day from 3 times a day. Continue on folic acid. EEG will be performed in the a.m.. - CT scan of the head on 12/25/2019 showed extensive infarction in the left MCA territory. - STATUS POST HYPOTHERMIA PROTOCOL, PATIENT HAS BEEN REWARMED.. - appreciate cardiology evaluation recommendations - EEG on 12/27/2019 showed Severely abnormal record due to burst suppression pattern compatible with severe hypoxic anoxic encephalopathy (2) Acute respiratory failure: Code(s): J96.00 - Acute respiratory failure, unspecified whether with hypoxia or hypercapnia Status: Acute Assessment and Plan: acute respiratory failure likely related to cardiac arrest, pulmonary edema, pneumonia, CHF - patient intubated on 12/22/2019 - on CMV mode of ventilation, peep of 5, 35% FiO2. She is not appropriate for SBT trial because of her mental status. - chest CT and chest x-ray reviewed, no PE, ABGs reviewed, ventilator adjusted. She is not a candidate for SBT trial Because of mental status. - patient started on ceftriaxone and azithromycin. But now antibiotics have been stopped as cultures remain negative. She still have fever spike. - patient on propofol and Precedex, She requires propofol intermittently for myclonic jerks. (3) Suspected COVID-19 virus infection: Code(s): R68.89 - Other general symptoms and signs Status: Acute Assessment and Plan: SARS-CoV-2 PCR negative Currently not on any precautions. (4) Bilateral pulmonary infiltrates on chest x-ray: Code(s): R91.8 - Other nonspecific abnormal finding of lung field Status: Acute Assessment and Plan: Initial chest x-ray showed bilateral pulmonary infiltrates with differential possible pneumonia vs suspected COVID-19 pneumonia. - Initially she was on ceftriaxone and azithromycin. Antibiotics have been stopped 2 days ago cultures remain negative. - blood and sputum cultures are negative so far, patient was spiking fevers, so was started on cefepime and vancomycin Chest x-ray showing bilateral airspace disease specially in the bilateral lung bases. - she could also have central fevers due to brain injury - appreciate infectious disease following, agrees with cefepime and vancomycin (5) Pulmonary edema: Code(s): J81.1 - Chronic pulmonary edema Status: Acute Assessment and Plan: resolved: pulmonary edema noted on the chest x-ray and CT scan - unknown history of congestive heart failure, - BNP 1160 - Echo Has been reported to have ejection fraction of 45-50%. Grade 1 diastolic dysfunction. Continue metoprolol. she has passed the time frame where she needed to have permissive hypertension. Can continue the metoprolol (6) Myoclonic jerking: Code(s): G25.3 - Myoclonus Status: Acute Assessment and Plan: No myoclonic jerks has been described with the last 48 hours or so. on Keppra 1 g q.8 hours. Continues to have seizure activity, discussed with Neurology, will increase valproic acid to 1000 mg Q 6 hours. - patient is on Ativan p.r.n. - appreciate Neurology evaluation recommendation. - EEG 12/27/2019: EEG DESCRIPTION: The whole record consists of diffused paroxysmal burst of medium to high voltage sharp and slow wave dysrhythmic activity lasted from 5-6 sec
--- NOTE | 2019-12-28 10:25 | PCDIET ---
Nutrition Follow-Up Complete: Nutrition Diagnosis: Inadequate oral intake related to oral intubation as evidenced by NPO state. Nutrition Goal: Patient to meet estimated nutritional needs. Goal met. Patient tolerating Vital 1.2 at 35mL/hr with Pro-Stat flush BID. Residuals 280mL and below. Plan for withdrawal of care today. Last recorded weight is 85.5 kg which is increased. +I/O. Bowel Motility: +BM on 12/26/19. Labs Reviewed: Hgb (10.3), Hct (32.0), Glu (116), Na (133), Alb (2.7), Mel[place] Ca (9.04) Meds Noted: Albuterol, Cefepime, Mannitol, Novolog, Protonix, Vancomycin, Propofol (rate of 12.6mL/hr provides 332kcal over 24 hour period) Additional Notes: Buttocks macerated. Recommend continuing present tube feeding, should family decide not to withdraw care today. Nutrition Monitoring and Evaluation: Follow up every Friday/Friday. Follow daily in ICU rounds.
[2019-12-28] MEDS: PROPOFOL IV EMULSION 100 ML 16.8 MG IV CONT (11:04)
[2019-12-28] MEDS: MORPHINE SULFATE 10 MG/ML AMP 5 MG IV PUSH (11:39)
[2019-12-28] MEDS: LORAZEPAM INJ 2 MG/ML VIAL IV PUSH ×2 (11:40→13:55)
--- NOTE | 2019-12-28 11:50 | P.PNIM_ITS ---
Progress Note: A&P Assessment and Plan (1) Cardiac arrest: Code(s): I46.9 - Cardiac arrest, cause unspecified Status: Acute Assessment and Plan: * Patient was reportedly in asystole on EMS arrival, with return of spontaneous circulation after 2 rounds of CPR/epinephrine. * Precipitating etiology not clear. Differential includes possible cardiac event (EKG demonstrates left bundle branch block with troponin elevation), cardiac dysrhythmia, respiratory event (diffuse bilateral pulmonary infiltrates on EKG, edema versus pneumonia). * Cardiology consulted due to presence of left bundle branch block and elevated troponin. * Echocardiogram today EF 45-50%. 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 No hemorrhagic conversion * Pt started on Mannitol for cerebral edema * Remains comatose with poor EEG findings * Family wishes to remove life support * D/w Dr. Jolly (2) Acute respiratory failure: Qualifiers: Respiratory failure complication: hypoxia and hypercapnia Qualified Code(s): J96.01 - Acute respiratory failure with hypoxia; J96.02 - Acute respiratory failure with hypercapnia Code(s): J96.00 - Acute respiratory failure, unspecified whether with hypoxia or hypercapnia Status: Acute Assessment and Plan: * Empiric ceftriaxone and azithromyc begun at admission and stopped * SARS-CoV-2 PCR specimen has been obtained and is negative * Currently intubated and sedated in icu (3) Bilateral pulmonary infiltrates on chest x-ray: Code(s): R91.8 - Other nonspecific abnormal finding of lung field Status: Acute Assessment and Plan: * Differential diagnosis includes pulmonary edema, pneumonia. * Likely the former (4) Anoxic brain damage: Code(s): G93.1 - Anoxic brain damage, not elsewhere classified Status: Acute Assessment and Plan: CT shows- Infarction involving large portion of the left MCA, probably about 3 days old given the amount of cytotoxic edema within this, causing sulcal effacement, small amount of uncal herniation, but no midline shift, and the lateral ventricles appear symmetric. No hemorrhagic conversion * Pt started on Mannitol * ongoing myoclonic jerks * poor mental status * poor EEG results * poor px for meaningful recovery (5) Myoclonic jerking: Code(s): G25.3 - Myoclonus Status: Acute Assessment and Plan: CT shows- Infarction involving large portion of the left MCA, probably about 3 days old given the amount of cytotoxic edema within this, causing sulcal effacement, small amount of uncal herniation, but no midline shift, and the lateral ventricles appear symmetric. No hemorrhagic conversion * Pt started on Mannitol * ongoing myoclonic jerks * poor mental status (6) Stroke: Qualifiers: CVA mechanism: unspecified Qualified Code(s): I63.9 - Cerebral infarction, unspecified Code(s): I63.9 - Cerebral infarction, unspecified Status: Acute Assessment and Plan: * Left MCA distribution (7) Cytotoxic cerebral edema: Code(s): G93.6 - Cerebr
--- NOTE | 2019-12-28 11:50 | PM.IMPN ---
Progress Note: A&P Assessment and Plan (1) Cardiac arrest: Code(s): I46.9 - Cardiac arrest, cause unspecified Status: Acute Assessment and Plan: Patient was reportedly in asystole on EMS arrival, with return of spontaneous circulation after 2 rounds of CPR/epinephrine. Precipitating etiology not clear. Differential includes possible cardiac event (EKG demonstrates left bundle branch block with troponin elevation), cardiac dysrhythmia, respiratory event (diffuse bilateral pulmonary infiltrates on EKG, edema versus pneumonia). Cardiology consulted due to presence of left bundle branch block and elevated troponin. Echocardiogram today EF 45-50%. 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 No hemorrhagic conversion Pt started on Mannitol for cerebral edema Remains comatose with poor EEG findings Family wishes to remove life support D/w Dr. Jolly (2) Acute respiratory failure: Qualifiers: Respiratory failure complication: hypoxia and hypercapnia Qualified Code(s): J96.01 - Acute respiratory failure with hypoxia; J96.02 - Acute respiratory failure with hypercapnia Code(s): J96.00 - Acute respiratory failure, unspecified whether with hypoxia or hypercapnia Status: Acute Assessment and Plan: Empiric ceftriaxone and azithromyc begun at admission and stopped SARS-CoV-2 PCR specimen has been obtained and is negative Currently intubated and sedated in icu (3) Bilateral pulmonary infiltrates on chest x-ray: Code(s): R91.8 - Other nonspecific abnormal finding of lung field Status: Acute Assessment and Plan: Differential diagnosis includes pulmonary edema, pneumonia. Likely the former (4) Anoxic brain damage: Code(s): G93.1 - Anoxic brain damage, not elsewhere classified Status: Acute Assessment and Plan: CT shows- Infarction involving large portion of the left MCA, probably about 3 days old given the amount of cytotoxic edema within this, causing sulcal effacement, small amount of uncal herniation, but no midline shift, and the lateral ventricles appear symmetric. 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 No hemorrhagic conversion Pt started on Mannitol ongoing myoclonic jerks poor mental status (6) Stroke: Qualifiers: CVA mechanism: unspecified Qualified Code(s): I63.9 - Cerebral infarction, unspecified Code(s): I63.9 - Cerebral infarction, unspecified Status: Acute Assessment and Plan: Left MCA distribution (7) Cytotoxic cerebral edema: Code(s): G93.6 - Cerebral edema Status: Acute Assessment and Plan: Treated with mannitol Subjective Date/time seen: 12/28/19 11:50 Interval history: 69-year-old white female admitted after cardiac arrest and code. Currently mechanically ventilated, cooled and warm. Discussed case with icu attending, may be difficult to extubate pt. Exam Narrative: Exam Narrative: Patient is ventilated an
--- NOTE | 2019-12-28 12:50 | WPDCDIQUERY2 ---
CDI Query Clarification Request - CT shows- Infarction involving large portion of the left MCA, probably about 3 days old given the amount of cytotoxic edema within this, causing sulcal effacement, small amount of uncal herniation, but no midline shift has been documented -Right sided weakness documented -Mannitol ordered - Coders cannot code diagnosis from documentation of CT findings If you concur with head CT findings of infarction and cytotoxic edema. Please document as a diagnoses. <Fany Gray RN - Last Filed: 12/28/19 12:54>
[2019-12-28] MEDS: MORPHINE SULFATE 2 MG/ML INJ IV PUSH (13:55)
--- NOTE | 2019-12-28 14:04 | WPDINFPN2 ---
Progress Note: A&P Assessment and Plan (1) Fever: Code(s): R50.9 - Fever, unspecified Status: Acute Assessment and Plan: 1. Fever, temps as above - aspiration pneumonitis? Less likely hypothalamic infarct 2. s/p CP arrest 3. Anoxic encephalopathy REC Cefepime and Vanc #3, continue at least another day while cultures incubate further. Do not anticipate prolonged empiric Rx. Subjective Date/time seen: 12/28/19 14:04 Interval history: non responsive Exam Narrative: Exam Narrative: t max 38.8 core Const: General: no acute distress Resp: Effort & Inspection: normal respiratory effort Auscultation: clear to auscultation bilaterally Cardio: Rate: regular rate Rhythm: regular rhythm Heart sounds: no murmurs GI: GI Palp: No Tenderness to palpation present (GI) Objective Data Vital Signs Vital Signs: Vital Signs - 24 hr 12/27/19 16:00 12/27/19 17:20 12/27/19 18:00 Temperature 38.4 C H 38.4 C H Pulse Rate 99 96 94 Respiratory Rate 22 H 22 H Blood Pressure 188/62 H 160/55 H Pulse Oximetry 99 99 98 12/27/19 18:51 12/27/19 20:00 12/27/19 20:05 Temperature 38.8 C H 38.4 C H Pulse Rate 97 90 Respiratory Rate 22 H Blood Pressure 145/52 H Pulse Oximetry 96 97 12/27/19 20:59 12/27/19 21:04 12/27/19 22:00 Temperature 37.8 C H Pulse Rate 89 91 86 Respiratory Rate 22 H 22 H 22 H Blood Pressure 142/99 H Pulse Oximetry 97 12/27/19 23:30 12/27/19 23:47 12/28/19 00:00 Temperature 38.0 C H Pulse Rate 86 86 87 Respiratory Rate 22 H Blood Pressure 153/53 H 151/52 H Pulse Oximetry 98 99 12/28/19 02:00 12/28/19 02:02 12/28/19 02:03 Temperature 38.4 C H Pulse Rate 93 93 94 Respiratory Rate 12 22 H Blood Pressure 153/54 H Pulse Oximetry 96 96 12/28/19 02:09 12/28/19 03:58 12/28/19 04:00 Temperature 38.4 C H Pulse Rate 94 94 97 Respiratory Rate 22 H 22 H Blood Pressure 161/57 H 158/56 H Pulse Oximetry 98 12/28/19 05:20 12/28/19 05:37 12/28/19 06:00 Temperature Pulse Rate 96 97 100 Respiratory Rate 22 H Blood Pressure 155/54 H Pulse Oximetry 95 97 12/28/19 08:00 12/28/19 08:10 12/28/19 09:00 Temperature 37.9 C H Pulse Rate 94 94 106 H Respiratory Rate 22 H 22 H Blood Pressure 159/55 H Pulse Oximetry 97 98 12/28/19 09:10 12/28/19 10:00 Temperature Pulse Rate 109 H 103 H Respiratory Rate 22 H 22 H Blood Pressure 174/60 H Pulse Oximetry 96 Intake/Output Intake/Output: Intake & Output 12/25/19 12/26/19 12/27/19 12/28/19 23:59 23:59 23:59 23:59 Intake Total 2181.6667 3517 3509 1542 Output Total 625 2425 2400 900 Balance 1556.6667 1092 1109 642 Meds/Results Medications: Active Medications Generic Name Dose Route Start Last Admin Trade Name Freq PRN Reason Stop Dose Admin Acetaminophen 650 mg 12/25/19 10:07 12/27/19 18:51 Tylenol Tablet FEED TUBE 650 mg Q4H PRN Administration Mild Pain (1-3) or Fever Albuterol 5 mg 12/22/19 14:00 12/28/19 09:00 Albuterol Sulf Neb 2.5mg/0.5ml INHALATION 5 mg Q6HRT LISSETTE Administration Aspirin 325 mg 12/26/19 08:00 12/28/19 08:10 Aspirin FEED TUBE 325 mg DAILY@0800 LISSETTE Administration Dextrose 12.5 gm 12/22/19 13:06 12/25/19 23:49 Dextrose 50% Syringe IV PUSH 12.5 gm PRN PRN Administration Hypoglycemia Protocol Enoxaparin Sodium 40 mg 12/23/19 09:00 12/28/19 08:10 Lovenox SUB-Q 40 mg DAILY LISSETTE Administration Glucagon 1 mg 12/22/19 13:06 Glucagon For Inj IM PRN PRN Hypoglycemia Protocol Glucose 15 gm 12/22/19 13:06 Glutose 15 PO PRN PRN Hypoglycemia Protocol Hydralazine HCl 10 mg 12/24/19 13:33 12/26/19 23:45 Apresoline Hcl Inj IV PUSH 10 mg Q4H PRN Administration Blood Pressure - High Dextrose 1,000 mls @ 100 mls/hr 12/22/19 13:06 Dextrose 5% 1,000 Ml IVPB PRN PRN Hypoglycemia Protocol Cefepime HCl 2 gm
--- NOTE | 2019-12-28 18:30 | PM.DDS ---
Discharge Sum: Prov Provider Primary care physician: [facility] Admitting provider: Mireille Dawkins MD Consults: 12/22/19 11:18 Consult to Physician Routine Comment: notified by emergency dept. Consulting Provider: Mishel Jolly doctor of optometry/MD group to consult: mark Reason for consultation: respiratory failure, pulmonary edema Has provider been notified: Yes 12/22/19 14:13 Consult to Physician Routine Comment: CALLED DEEPIKA ALVARADO WITH CONSULT INFORMATION Consulting Provider: Lawrence John doctor of optometry/MD group to consult: CARDIOLOGY Reason for consultation: Cardiac arrest, left bundle branch block Has provider been notified: Yes 12/22/19 14:14 Consult to Physician Routine Comment: CALLED DR. POTTER WITH CONSULT INFORMATION Consulting Provider: Peter Potter doctor of optometry/ group to consult: NEUROLOGY Reason for consultation: Cardiac arrest, myoclonic jerks Has provider been notified: Yes 12/26/19 Consult to Physician Routine Comment: DR HARRINGTON IS AWARE OF THE CONSULT Consulting Provider: Sid Harrington doctor of optometry/ group to consult: Infectious disease Reason for consultation: Febrile with no clear source of infection Has provider been notified: Yes Discharge Sum: Diag Contributing Factors (1) Anoxic brain damage: (2) Stroke: (3) Cytotoxic cerebral edema: (4) Myoclonic jerking: (5) Pulmonary edema: (6) Cardiac arrest: (7) Acute respiratory failure: (8) Lactic acidosis: (9) Elevated LFTs: Discharge Sum: Summary Date and Time Date of admission: 12/22/19 11:13 Summary Details: Patient was admitted by EMS to the intensive care unit after suffering cardiopulmonary arrest at home on December 21. The patient had summoned her daughter home from work saying that ?something was not right ?period with the daughter arrived on the patient was lying down and moving but not acting normal. EMS was summoned. They found her in asystole. She was resuscitated and intubated in the field and brought to the emergency department. She was treated with hypothermic protocol and because of fever vancomycin and cefepime. Cultures were negative however. She had pulmonary edema. She was diuresed. After rewarming she showed no signs of awakening. Her CT of the brain showed a large left middle cerebral artery stroke with surrounding cerebral edema and midline shift. Myoclonic jerks continued. She did not improve in spite of treatment with IV mannitol. EEG was compatible with severe hypoxic encephalopathy. Because of her lack of progress and the aforementioned extremely poor prognostic signs, her family opted to discontinue life support and pursue comfort care only. She within a matter of hours. Additional Data Attending physician: Mireille Dawkins MD
--- NOTE | 2019-12-28 18:44 | PC.NURSE ---
Patient at 18:20. Charge nurse, EVELYN Abbasi notified and patients daughter, Aziza called.
== END 2019-12-28 19:30 | disposition expired | DRG 296 ==
LOC: ANHED 11:14 → ANHICU 11:38
PROVIDERS: Family Medicine; Internal Medicine; Internal Medicine Critical Care Medicine; Internal Medicine Infectious Disease; Physician Assistant; Admitting Provider Family Medicine; Emergency Provider Emergency Medicine; Visit Provider Internal Medicine
DX: I46.9 Cardiac arrest, cause unspecified (principal); J96.00 Acute respiratory failure, unspecified whether with hypoxia or hypercapnia; J81.0 Acute pulmonary edema; K72.00 Acute and subacute hepatic failure without coma; J69.0 Pneumonitis due to inhalation of food and vomit; I63.9 Cerebral infarction, unspecified; G93.6 Cerebral edema; E87.2 Acidosis; G93.1 Anoxic brain damage, not elsewhere classified; I44.7 Left bundle-branch block, unspecified; R79.89 Other specified abnormal findings of blood chemistry; K76.0 Fatty (change of) liver, not elsewhere classified; Z20.828 Contact with and (suspected) exposure to other viral communicable diseases; G25.3 Myoclonus; D72.829 Elevated white blood cell count, unspecified; Z86.73 Personal history of transient ischemic attack (TIA), and cerebral infarction without residual deficits
CPT/HCPCS: 36415; 36556; 36600; 70450; 71045; 71275; 76705; 80053; 80061; 80074; 80307; 81001; 82375; 82728; 82805; 83036; 83050; 83605; 83615; 83735; 83880; 83930; 84100; 84132; 84145; 84443; 84484; 85025; 85027; 85380; 85610; 85730; 86140; 86850; 86900; 86901; 87040; 87070; 87086; 87205; 87635; 93005; 93306; 94003; 94640; 95816; 96365; 96366; 96368; 96375; 96376; 99291; A9270; C1751; C9113; J0360; J0456; J0692; J0696; J1165; J1650; J1815; J1940; J1953; J2060; J2250; J2270; J2704; J3010; J3370; J3475; J3480; J7030; J7050; J7120; Q9957; Q9967; U0003